=== PATIENT | female | born 1950 | race Caucasian/White ===

== ENCOUNTER 2016-11-17 18:49 | Observation (INO) | payer OTHER ==
--- NOTE | 2016-11-17 19:26 | RAD ---
History: Chest pain and shortness of breath Study: Portable AP chest Comparison: May 11, 2016 Findings: There is unchanged moderate cardiomegaly status post Coronary artery bypass grafting surge ry. There are unchanged intact pacemaker wire leads from the left subclavian vein. The lungs are anuj ssly clear. There is no pleural effusion. Impression: Chronic moderate cardiomegaly, no definite acute disease. Reported By:
--- NOTE | 2016-11-17 19:29 | DR.GENAD ---
HPI - PCP Primary Care Physician: matt - Complaint/Symptoms Chief Complaint Doctors Comments: I agree with statement. Patient reports that she was in usual state of health until last night when has had to increase her oxygen to 3L for comfort instead of the usual two. Shed admits to not being able across the room before getting short of breath; this is unusual for her. She has a two pilow orthopnea. Chief Complaint:: pt states" Adrianna been feeling sob and feeling weak for a few days my chest has been feeling heavy and my stomach hurts real bad" - Source History Provided: Patient - Mode of Arrival Mode of Arrival: Ambulatory - Timing Onset of Chief Complaint: 11/17/16 PMH - PMH Past Medical History: Yes Past Medical History: CHF, Diabetes Past Surgical History: Yes Surgical History: Angioplasty/Stents, CABG/Valve Surgery, Cholecystectomy Past Surgical History Comment: hernia - Family History History of Family Medical Conditions: Yes Family Medical History: [place], Coronary Artery Disease, Heart Failure, Hypertension - Social History Alcohol Use: None Lives With: Family Lives Where: Home - infectious screening In the last 2 months have you had wt loss of >10#?: NO Have you had fever, night sweats or hemotysis?: No Have you traveled outside the country in the last 6 months?: No Isolation: Standard ROS - Review of Systems Constitutional: Diaphoresis Eyes: No Symptoms Reported ENTM: No Symptoms Reported Respiratoy: Short of Breath Cardiovascular: No Symptoms Reported Gastrointestinal/Abdominal: No Symptoms Reported Genitourinary: No Symptoms Reported Neurological: No Symptoms Reported Musculoskeletal: No Symptoms Reported Integumentary: No Symptoms Reported Hematologic/Lymphatic: No Symptoms Reported Endocrine: No Symptoms Reported Psychiatric: No Symptoms Reported All Other Systems: Reviewed and Negative PE - Vital Signs Vitals: Temperature 97.5 F Pulse Rate 88 Respiratory Rate 20 Blood Pressure 96/64 O2 Sat by Pulse Oximetry 99 - General General Appearance: Alert, In No Apparent Distress - Head Head Exam: Normal Inspection, Atraumatic - Eyes Eye exam: Normal Appearance, PERRL, EOMI - ENT ENT Exam: Normal Exam External Ear Exam: Normal External Inspection TM/Canal Exam: Bilateral Normal Nose Exam: Normal Nose Exam Mouth Exam: Normal Inspection Throat Exam: Normal Inspection - Neck Neck Exam: Normal Inspection - Chest Chest Inspection: Normal Inspection - Respiratory Respiratory Exam: Normal Lung Sounds Bilat. negative: Respiratory Distress Respiratory Exam: Bilateral Clear to Auscultation - Cardiovascular Cardiovascular Exam: Regular Rate, Normal Rhythm - Abdominal Exam Abdominal Exam: Normal Inspection Abdominal Tenderness: negative: RUQ, RLQ, LUQ, LLQ, Epigastrium, Suprapubic, Diffuse, Mild, Moderate, Severe, Other - Extremities Extremities Exam: Other (RLE with 2+pitting) - Back Back Exam: Normal Inspection, Full ROM - Neurologic Neurological Exam: Alert, Oriented X3, CN II-XII Intact - Psychiatric Psychiatric Exam: Normal Affect, Normal Mood Course - Reevaluation 1st: Unchanged ROR - Labs Reviewed Laboratory Results Reviewed?: Yes (D Dimer 2920;BNAP 1320) Result Diagrams: 11/17/16 19:23 11/17/16 19:23 Laboratory: WBC 7.5 X10^3/uL (3.6-10.0) 11/17/16 19: RBC 3.97 X10^6/uL (3.5-5.4) 11/17/16 19: Hgb 9.7 g/dL (12.0-16.0) L 11/17/16 19:23 Hct 29.9 % (36.0-47.0) L 11/17/16 19:23 MCV 75.3 fL (80.0-100.0) L 11/17/16 19: MCH 24.4 pg (27.0-34.0) L 11/17/16 19:23 MCHC 32.4 g/dL (33.0-35.0) L 11/17/16 19:23 RDW 16.8 % (11.6-16.5) H 11/17/16 19:23 Plt Count 267 X10^3/uL (150.0-450.0) 11/17/16 19:23 Plt Count Comment Adequate (ADEQUATE) 11/17/16 19: MPV 8.3 fL (7.4-11.0) 11/17/16 19: Neut % 70.2 % (42.0-75.0) 11/17/16 19:23 Lymph % 19.3 % (21.0-51.0) L 11/17/16 19: Forrest % 8.3 % (0.0-13.0) 11/17/16 19: Eos % 1.3 % (0.9-2.9) 11/17/16 19:23 Baso % 0.9 % (0.2-1.0) 11/17/16 19:23 Neut # 5.3 x10^3/uL (2.2-4.8) H 11/17/16 19:23 Lymph # 1.5 X10^3/uL (1.3-2.9) 11/17/16 19: Forrest # 0.6 x10^3/uL (0.3-0.8) 11/17/16 19:23 Eos # 0.1 x10^3/uL (0.0-0.2) 11/17/16 19: Baso # 0.1 X10^3/uL (0.0-0.1) 11/17/16 19:23 Absolute Nucleated RBC 0.1 /100WBC 11/17/16 19:23 Plt Morphology Comment Normal (NORMAL) 11/17/16 19:23 RBC Morphology Abnormal (NORMAL) A 11/17/16 19:23 Hypochromasia 1+ A 11/17/16 19:23 Microcytosis 1+ A 11/17/16 19:23 INR Target Range - 11/17/16 19:23 INR 1.21 (0.8-1.3) 11/17/16 19:23 PTT 33.5 SECONDS (22.9-36.5) 11/17/16 19:23 PTT Comment - 11/17/16 19:23 D-Dimer 2920 ng/mL (0-400) H* 11/17/16 19:23 Sodium 136 mmol/L (136-145) 11/17/16 19:23 Corrected Sodium 138 mmol/L (136-145) 11/17/16 19:23 Potassium 4.3 mmol/L (3.5-5.1) 11/17/16 19:23 Chloride 99 mmol/L (98-107) 11/17/16 19:23 Carbon Dioxide 23.0 mmol/L (21-32) 11/17/16 19:23 BUN 37 mg/dL (7-18) H 11/17/16 19:23 Creatinine 1.55 mg/dL (0.55-1.02) H 11/17/16 19:23 Est GFR (MDRD) Af Amer 43 (>60) L 11/17/16 19:23 Est GFR (MDRD) Non-Af 35 (>60) L 11/17/16 19:23 Glucose 184 mg/dL (65-99) H 11/17/16 19:23 Calcium 8.5 mg/dL (8.5-10.1) 11/17/16 19:23 Corrected Calcium TNP 11/17/16 19:23 Magnesium 1.6 mg/dL (1.7-2.9) L 11/17/16 19:23 Total Bilirubin 0.70 mg/dL (0.2-1.0) 11/17/16 19:23 AST 110 Units/L (15-37) H 11/17/16 19:23 ALT 81 Units/L (12-78) H 11/17/16 19:23 Alkaline Phosphatase 88 Units/L (46-116) 11/17/16 19:23 Creatine Kinase 75 Units/L (26-192) 11/17/16 19:23 CK-MB (CK-2) 1.1 ng/mL (0-4.0) 11/17/16 19:23 CK/CKMB % Calc 1.5 % (<4) 11/17/16 19:23 Troponin I 0.04 ng/mL (0-1.5) 11/17/16 19:23 B-Natriuretic Peptide 1320 pg/mL (0-79) H* 11/17/16 19:23 Total Protein 7.4 g/dL (6.4-8.2) 11/17/16 19:23 Albumin 3.6 g/dL (3.4-5.0) 11/17/16 19:23 Globulin 3.8 g/dL (2.5-4.5) 11/17/16 19:23 Albumin/Globulin Ratio 0.9 Ratio (1.1-2.1) L 11/17/16 19:23 H. pylori IgG Antibody Negative (NEGATIVE) 11/17/16 19:23 - XRAY XRAY Interpreted by: Radiologist (Chest: There is unchanged moderate cardiomegaly status post coronary artery bypass grafting surgery. There are unchanged intact pacemaker wire leads from the left subclavian vein. The lungs are grossly clear.: Impression: Chronic moderate cardiomegalyh. no definite acute disease) - Diagnosis Discharge Problem: Congestive heart failure (CHF) Qualifiers: Congestive heart failure type: unspecified congestive heart failure type Congestive heart failure chronicity: acute Qualified Code(s): I50.9 - Heart failure, unspecified - Discharge Plan Condition: Stable - Follow ups/Referrals Follow ups/Referrals: NFD,None [Primary Care Provider] - 3 days - Instructions
[2016-11-17 19:34] LABS: BASOPHILS # (AUTO) 0.1 X10^3/uL (0.0-0.1); BASOPHILS % (AUTO) 0.9 % (0.2-1.0); EOSINOPHILS # (AUTO) 0.1 x10^3/uL (0.0-0.2); EOSINOPHILS % (AUTO) 1.3 % (0.9-2.9); HEMATOCRIT 29.9 % (36.0-47.0); HEMOGLOBIN 9.7 g/dL (12.0-16.0); LYMPHOCYTES # (AUTO) 1.5 X10^3/uL (1.3-2.9); LYMPHOCYTES % (AUTO) 19.3 % (21.0-51.0); MEAN CORPUSCULAR HEMOGLOBIN 24.4 pg (27.0-34.0); MEAN CORPUSCULAR HGB CONC 32.4 g/dL (33.0-35.0); MEAN CORPUSCULAR VOLUME 75.3 fL (80.0-100.0); MEAN PLATELET VOLUME 8.3 fL (7.4-11.0); MONOCYTES # (AUTO) 0.6 x10^3/uL (0.3-0.8); MONOCYTES % (AUTO) 8.3 % (0.0-13.0); NEUTROPHILS # (AUTO) 5.3 x10^3/uL (2.2-4.8); NEUTROPHILS % (AUTO) 70.2 % (42.0-75.0); PLATELET COUNT 267 X10^3/uL (150.0-450.0); RED BLOOD COUNT 3.97 X10^6/uL (3.5-5.4); RED CELL DISTRIBUTION WIDTH 16.8 % (11.6-16.5); WHITE BLOOD COUNT 7.5 X10^3/uL (3.6-10.0)
[2016-11-17 19:47] LABS: ALANINE AMINOTRANSFERASE 81 Units/L (12-78); ALBUMIN 3.6 g/dL (3.4-5.0); ALKALINE PHOSPHATASE 88 Units/L (46-116); ASPARTATE AMINO TRANSFERASE 110 Units/L (15-37); CALCIUM 8.5 mg/dL (8.5-10.1); CHLORIDE 99 mmol/L (98-107); COR NA(FOR HYPERGLY) 138 mmol/L (136-145); CREATININE 1.55 mg/dL (0.55-1.02); GLUCOSE 184 mg/dL (65-99); MAGNESIUM 1.6 mg/dL (1.7-2.9); SODIUM 136 mmol/L (136-145); TOTAL PROTEIN 7.4 g/dL (6.4-8.2); eGFR BLACK RACES 43 (>60); eGFR NON BLACK RACES 35 (>60)
[2016-11-17 19:59] LABS: HYPOCHROMASIA 1+; MICROCYTOSIS 1+; PLATELET MORPHOLOGY COMMENT NORMAL (NORMAL)
[2016-11-17 20:00] LABS: BLOOD UREA NITROGEN 37 mg/dL (7-18)
[2016-11-17 20:07] LABS: CKMB % 1.5 % (<4); CREATINE KINASE MB 1.1 ng/mL (0-4.0); TROPONIN I 0.04 ng/mL (0-1.5)
[2016-11-17 20:11] LABS: B-TYPE NATRIURETIC PEPTIDE 1320 pg/mL (0-79)
[2016-11-17] MEDS ORDERED: ZOFRAN INJ 4 MG VIAL IVP PRN (20:30)
[2016-11-17] MEDS ORDERED: MORPHINE SULFATE INJ 2 MG IVP PRN (20:31)
[2016-11-17] MEDS: LASIX IVP SCH (21:12)
[2016-11-17] MEDS: NS 1000 ML 1,000 ML IV SCH (21:12)
[2016-11-17] MEDS: HumuLIN R SUBCUT PRN (21:27)
[2016-11-17 21:33] VITALS: BMI 30.8
[2016-11-17 22:05] LABS: BILIRUBIN,URINE NEGATIVE (NEGATIVE); BLOOD/HEMOGLOBIN,URINE NEGATIVE (NEGATIVE); GLUCOSE, URINE NEGATIVE (NEGATIVE); KETONES,URINE NEGATIVE (NEGATIVE); LEUKOCYTE ESTERASE ,URINE 2+ (NEGATIVE); NITRITES,URINE NEGATIVE (NEGATIVE); PROTEIN,URINE 2+ (NEGATIVE); UROBILINOGEN,URINE NORMAL (NORMAL)
[2016-11-17 22:18] LABS: AMORPHOUS SEDIMENT,UR TRACE /HPF (NEGATIVE); APPEARANCE,URINE HAZY (CLEAR); BACTERIA,URINE 2+ /HPF (NEGATIVE); COLOR,URINE YELLOW (YELLOW); HYALINE CASTS, URINE FEW /LPF (NEGATIVE); RBC,URINE 0-2 /HPF (NEGATIVE); SQUAMOUS EPITHELIAL CELL,UR FEW /HPF (NEGATIVE)
[2016-11-18 01:38] LABS: CKMB % 1.6 % (<4); CREATINE KINASE 64 Units/L (26-192); CREATINE KINASE MB < 1.0 ng/mL (0-4.0); TROPONIN I 0.04 ng/mL (0-1.5)
[2016-11-18] MEDS ORDERED: TYLENOL 325 MG TAB PO PRN (03:51)
[2016-11-18] MEDS: LASIX IVP SCH ×2 (06:01→17:19)
--- NOTE | 2016-11-18 06:27 | RAD ---
HISTORY: Shortness of breath Study: Chest one view Comparison: November 17, 2016 Findings: There is a pacemaker present on the left obscuring a portion of the left lateral upper lobe. The pat ient is status post median sternotomy. The heart is enlarged. Mild pulmonary venous congestion is pr esent. No interstitial or alveolar edema, alveolar infiltrates, or pleural effusions are identified. The bony thorax is unremarkable. IMPRESSION: Cardiomegaly with pulmonary venous congestion Reported By:
[2016-11-18 06:32] LABS: BASOPHILS # (AUTO) 0.1 X10^3/uL (0.0-0.1); BASOPHILS % (AUTO) 1.3 % (0.2-1.0); EOSINOPHILS # (AUTO) 0.1 x10^3/uL (0.0-0.2); EOSINOPHILS % (AUTO) 2.2 % (0.9-2.9); HEMATOCRIT 29.8 % (36.0-47.0); HEMOGLOBIN 9.6 g/dL (12.0-16.0); LYMPHOCYTES # (AUTO) 1.3 X10^3/uL (1.3-2.9); LYMPHOCYTES % (AUTO) 20.9 % (21.0-51.0); MEAN CORPUSCULAR HGB CONC 32.3 g/dL (33.0-35.0); MEAN CORPUSCULAR VOLUME 74.3 fL (80.0-100.0); MEAN PLATELET VOLUME 8.6 fL (7.4-11.0); MONOCYTES # (AUTO) 0.4 x10^3/uL (0.3-0.8); MONOCYTES % (AUTO) 6.2 % (0.0-13.0); NEUTROPHILS # (AUTO) 4.4 x10^3/uL (2.2-4.8); NEUTROPHILS % (AUTO) 69.4 % (42.0-75.0); PLATELET COUNT 253 X10^3/uL (150.0-450.0); RED BLOOD COUNT 4.01 X10^6/uL (3.5-5.4); RED CELL DISTRIBUTION WIDTH 16.9 % (11.6-16.5); WHITE BLOOD COUNT 6.4 X10^3/uL (3.6-10.0)
[2016-11-18 06:41] LABS: ALANINE AMINOTRANSFERASE 107 Units/L (12-78); ALBUMIN 3.5 g/dL (3.4-5.0); ALKALINE PHOSPHATASE 86 Units/L (46-116); ASPARTATE AMINO TRANSFERASE 140 Units/L (15-37); BLOOD UREA NITROGEN 30 mg/dL (7-18); CALCIUM 8.7 mg/dL (8.5-10.1); CARBON DIOXIDE 29.3 mmol/L (21-32); CHLORIDE 98 mmol/L (98-107); CHOL/HDL RATIO 4.5 (0.0-5.0); CHOLESTEROL 127 mg/dL (0-200); COR NA(FOR HYPERGLY) 137 mmol/L (136-145); CREATININE 1.04 mg/dL (0.55-1.02); GLUCOSE 155 mg/dL (65-99); HDL CHOLESTEROL 28 mg/dL (40-60); SODIUM 136 mmol/L (136-145); TOTAL PROTEIN 7.4 g/dL (6.4-8.2); TRIGLYCERIDES 136 mg/dL (0-150); eGFR BLACK RACES > 60 (>60); eGFR NON BLACK RACES 56 (>60)
[2016-11-18] MEDS ORDERED: K-LYTE EFFERVESCENT PO PRN (07:09)
[2016-11-18] MEDS ORDERED: K-RIDER 10 MEQ/NS 100 ML 10 MEQ/100 ML BAG IV PRN (07:09)
[2016-11-18] MEDS ORDERED: POTASSIUM CHLORIDE LIQ 20 MEQ UDC PO PRN (07:09)
[2016-11-18 07:11] LABS: B-TYPE NATRIURETIC PEPTIDE 1210 pg/mL (0-79)
[2016-11-18 07:28] LABS: HYPOCHROMASIA 1+; MICROCYTOSIS SLIGHT; PLATELET MORPHOLOGY COMMENT NORMAL (NORMAL)
[2016-11-18 07:49] LABS: CKMB % 1.7 % (<4); CREATINE KINASE 60 Units/L (26-192); CREATINE KINASE MB < 1.0 ng/mL (0-4.0); TROPONIN I 0.04 ng/mL (0-1.5)
[2016-11-18] MEDS: K-DUR TAB 20 MEQ PO PRN (09:31)
[2016-11-18] MEDS ORDERED: PROCRIT or EPOGEN SC ONE ×2 (10:34→16:06)
[2016-11-18] MEDS ORDERED: GLIPIZIDE 20 MG PO SCH (10:45)
[2016-11-18] MEDS ORDERED: VITAMIN E 400 UNIT PO SCH (10:45)
[2016-11-18] MEDS ORDERED: PREGABALIN 75 MG PO SCH (10:45)
[2016-11-18] MEDS ORDERED: ESOMEPRAZOLE MAGNESIUM 10 MG PO SCH (10:45)
[2016-11-18] MEDS ORDERED: METFORMIN HCL 2000 MG PO SCH (10:45)
--- NOTE | 2016-11-18 10:55 | DR.H&P ---
H&P - History & Physical for Day of: H&P Date: 11/17/16 - Chief Complaint Chief Complaint: SHORT OF BREATH, WEAKNESS, HEAVINESS IN CHEST, ABDOMINAL PAIN - Allergies Allergies/Adverse Reactions: Allergies Allergy/AdvReac Type Severity Reaction Status Date / Time No Known Allergies AdvReac Verified 11/17/16 18:52 - History of Present Illness History of Present Illness: IS A 66 YEAR OLD PATIENT OF OURS WHO PRESENTED TO THE ER WITH COMPLAINTS OF SHORTNESS OF BREATH, WEAKNESS, FEELINGS OF HEAVINESS IN CHEST, AND ABDOMINAL PAIN AND PAINFUL URINATION. PATIENT STATES THAT SHE BECAME SHORT OF BREATH AND HAD TO INCREASE HER OXYGEN TO 3 LPM, WHEREAS SHE USUALLY WEARS IT AT 2 LPM. LUNGS WERE NOTED WITH RALES BILATERALLY. ON ARRIVAL TO ER, VITALS WERE 97.0-84-36-99-96/64. CBC REPORTS WBC 7.5, RBC 3.97, HGB 9.7, HCT 29.9. CMP REPORTS SODIUM 136, POTASSIM 4.3, BUN 37, CREATININE 1.5, GLUCOSE 184, MAGNESIUM 1.6, AST 110, ALT 81, BNP 1320. D-DIMER 2920. H-PYLORI NEGATIVE. URINALYSIS REPORTS WBC 10-12, LEUKOCYTES 2+, BACTERIA 2 +, PROTEIN 2+. CHEST XRAY REPORTS CHROMIC MODERATE CARDIOMEGALY, NO DEFINITE ACUTE DISEASE. WE ADMITTED PATIENT FOR FURTHER TREATMENT AND EVALUATION. WE STARTED HER ON NS @80 ML/HR, LASIX 40MG IV BID, SLIDING SCALE INSULIN, ZOFRAN 4 MG IV Q4H PRN FOR NAUSEA, AND MORPHINE 2MG IVP Q4H PRN PAIN. WE PLANNED TO RECHECK LABS AND FOLLOW UP WITH PATIENT IN AM. - Past Medical History Past Medical History: Anemia, CHF, Depression, Diabetes, Dyslipidemia, GERD, PUD Additional Medical History: CATARACTS, RETINAL DETACHMENT, HIATAL HERNIA - Past Surgical History Surgical History: Cholecystectomy, Hysterectomy, Tonsillectomy Additional Surgical History: BYPASS X 4 - Family History Family Medical History: Diabetes Mellitus, [place], Hypertension - Social History Does patient currently use any type of tobacco product: No Have you used tobacco products in the last 12 months: No Type of Tobacco Use: None Does any household member use tobacco: No Alcohol Use: None Drug Use: None - Medications Home Medications: Clopidogrel Bisulfate [Clopidogrel] 75 mg PO DAILY 11/17/16 [History Confirmed 11/17/16] Esomeprazole Magnesium 10 mg PO DAILY 11/17/16 [History Confirmed 11/17/16] Furosemide [Furosemide] 40 mg PO DAILY 11/17/16 [History Confirmed 11/17/16] Glipizide [Glipizide] 20 mg PO DAILY 11/17/16 [History Confirmed 11/17/16] Lansoprazole [Prevacid] 30 mg PO DAILY 11/17/16 [History Confirmed 11/17/16] Metformin HCl [Metformin HCl ER] 2,000 mg PO DAILY 11/17/16 [History Confirmed 11/17/16] Metoprolol Succinate [Toprol Xl] 1 tab PO DAILY 11/17/16 [History Confirmed ] Niacin [Niacin ER 1000 mg] 2,000 mg PO HS 11/17/16 [History Confirmed 11/17/16] Potassium Citrate [Potassium Citrate] 1 tab PO DAILY 11/17/16 [History Confirmed 11/17/16] Pregabalin 75 mg PO NEEDED 11/17/16 [History Confirmed 11/17/16] Ranitidine HCl [Zantac] 300 mg PO HS PRN 11/17/16 [History Confirmed 11/17/16] Rosuvastatin Calcium [Crestor] 40 mg PO HS 11/17/16 [History Confirmed 11/17/16] Vitamin E 400 unit PO DAILY 11/17/16 [History Confirmed 11/17/16] Zolpidem Tartrate [Zolpidem Tartrate] 10 mg PO DAILY 11/17/16 [History Confirmed 11/17/16] - Review of Systems Constitutional: No Symptoms Reported. denies: See HPI, Fever, Chills, Sweats, Weakness, Malaise, Other Eyes: No Symptoms Reported. denies: See HPI, Pain, Vision Change, Conjunctivae Inflammation, Eyelid Inflammation, Redness, Other ENT: No Symptoms Reported. denies: See HPI, Ear Pain, Ear Discharge, Nose Pain , Nose Discharge, Nose Congestion, Mouth Pain, Mouth Swelling, Throat Pain, Throat Swelling, Other Respiratory: See HPI, Shortness of Breath, SOB with Excertion. denies: No Symptoms Reported, Cough, Dry, Hemoptysis, Pleuritic Pain, Sputum, Wheezing, Other Cardiovascular: Chest Pain. denies: No Symptoms Reported, See HPI, Palpitations , Orthopnea, Paroxysmal Noc. Dyspnea, Edema, Light Headedness, Other Gastrointestinal: Abdominal Pain. denies: No Symptoms Reported, See HPI, Nausea , Vomiting, Diarrhea, Constipation, Melena, Hematochezia, Other Genitourinary: Dysuria. denies: No Symptoms Reported, See HPI, Frequency, Incontinence, Hematuria, Retention, Other Musculoskeletal: No Symptoms Reported. denies: See HPI, Shoulder Pain, Arm Pain , Back Pain, Hand Pain, Leg Pain, Foot Pain, Neck Pain, Other Skin: No Symptoms Reported. denies: See HPI, Rash, Lesions, Jaundice, Bruising , Wound, Ecchymosis, Other Neurological: Weakness. denies: No Symptoms Reported, See HPI, Numbness, Incoordination, Change in Speech, Confusion, Seizures, Other - Physical Exam Vital Signs: Temperature 97.9 F Pulse Rate [Apical] 83 Respiratory Rate 20 Blood Pressure [Right Arm] 108/59 O2 Sat by Pulse Oximetry 100 Oriented: Normal. negative: Time, Person, Place, Not Oriented, Unable to test, Other Eyes: Normal. negative: Blurred Vision, Diplopia, Discharge, Pain, Redness, Photophobia, Other Ear: Normal. negative: Right, Left, Swelling, Ecchymosis, Hemotypanum, Abrasion , Laceration Nose: Normal Throat: Normal. negative: Tonsillar Hypertrophy, Red, Exudate, Dry, Other Respiratory: Rales Throughout. negative: Clear Throughout, Diminished Throughout, Rhonchi Throughout, Wheezes Throughout, RUL Clear, RML Clear, RLL Clear, JUAN Clear, LML Clear, LLL Clear, RUL Diminished, RML Diminished, RLL Diminished, JUAN Diminished, LML Diminished, LLL Diminished, RUL Absent, RML Absent, RLL Absent, JUAN Absent, LML Absent, LLL Absent, RUL Rhonchi, RML Rhonchi , RLL Rhonchi, JUAN Rhonchi, LML Rhonchi, LLL Rhonchi, RUL Insp. Wheeze, RML Insp. Wheeze, RLL Insp. Wheeze, JUAN Insp.Wheeze, LML Insp.Wheeze, LLL Insp.Wheeze, RUL Exp. Wheeze, RML Exp. Wheeze, RLL Exp. Wheeze, JUAN Exp. Wheeze , LML Exp. Wheeze, LLL Exp. Wheeze, RUL Rales, RML Rales, RLL Rales, JUAN Rales, LML Rales, LLL Rales, RUL Rub, RML Rub, RLL Rub, JUAN Rub, LML Rub, LLL Rub, RUL Squeak, RML Squeak, RLL Squeak, JUAN Squeak, LML Squeak, LLL Squeak Cardiovascular: Normal. negative: Tachycardia, Bradycardia, Irregular, S3, S4, Systolic, Diastolic, Murmur, Edema, Other : Normal. negative: Dysuria, Hematuria, Frequency, Discharge, Testicular Pain , Bleeding, , Other Auscultation: Bowel Sounds: Normal. negative: Bruit, Absent, Increased, Decreased, High Pitched, Other Palpation: Normal. negative: Spleen Enlarged, Liver Enlarged, Mass Pulsatile, Other Tenderness: Normal. negative: Diffuse, RUQ, RLQ, LUQ, LLQ, Epigastric, Periumbilical, Suprapubic, Mild, Moderate, Severe, Rebound, Guarding, Rigidity, Other Skin: Normal. negative: Decreased Turgur, Rash, Papular, Macular, Maculopapular , Vesicular, Pustular, Petechial, Red, Tender, Hot, Diaphoresis, Wound, Bruising , Ecchymosis, Other Musculoskeletal: Normal. negative: Right, Left, Shoulder, Clavicle, Arm, Elbow , Forearm, Wrist, Hand, Hip, Thigh, Knee, Leg, Ankle, Foot, Back:Thoracic, Back: Lumbar, Back:Midline, Back:Paraspinous, Pelvis, Swelling, Tender, Deformity, Pulse Deficit, Motor Deficit, Sensory Deficit, Instability, Crepitance Psychiatric: Normal. negative: Anxiety, Depression, Agitation, Other Mood Description: Calm. negative: Angry, Apathetic, Depressed, Fearful, Flat, Happy, Hostile, Sad, Suspicious, Withdrawn, Anxious, Appropriate, Labile Affect: Normal. negative: Angry, Anxious, Depressed, Flat, Hysterical, Quiet, Violent Speech Pattern: Clear. negative: Appropriate, Unclear, Inappropriate, Delayed, Slurred, Excessive, Aphasic, Artificially Ventilated - Assessment/Plan (1) Congestive heart failure (CHF) Qualifiers: Congestive heart failure type: unspecified congestive heart failure type Congestive heart failure chronicity: acute Qualified Code(s): I50.9 - Heart failure, unspecified Status: Acute Plan: START LASIX 40MG IV BID, CHECK CHEST XRAY, CONTINUE TO MONITOR (2) Dehydration Status: Acute Plan: START NS @ 80ML/HR. CONTINUE TO MONITOR (3) Urinary tract infection Qualifiers: Urinary tract infection type: site unspecified Hematuria presence: without hematuria Indwelling urinary catheter type: I Encounter type: E Qualified Code(s): N39.0 - Urinary tract infection, site not specified Status: Acute Plan: START ROCEPHIN 1GM IV DAILY, CONTINUE TO MONITOR
[2016-11-18] MEDS ORDERED: MAGNESIUM SULFATE 1 GM/100 mL PREMIX 1 GM/100 ML BAG IV ONE (11:03)
[2016-11-18] MEDS ORDERED: PROCRIT or EPOGEN ONE (13:22)
[2016-11-18] MEDS: PLAVIX PO SCH (13:30)
[2016-11-18] MEDS: PREVACID PO SCH (13:30)
[2016-11-18] MEDS: HumuLIN R SUBCUT PRN ×3 (13:31→21:01)
[2016-11-18] MEDS: ROCEPHIN VIAL 1 GM 1 GM in NS 50 ML IV + SPIKE MINIBAG* 50 ML IV SCH (13:34)
--- NOTE | 2016-11-18 13:35 | PCM.PROG ---
Progress Note - Progress Note for Day of Date: 11/18/16 - Subjective Subjective: WAS ADMITTED LAST NIGHT WITH CHF, DEHYDRATION, AND UTI. SHE IS ALERT AND ORIENTED, UP IN CHAIR, ON MORNING ROUNDS. PATIENT'S SISTER IS AT BEDSIDE. SHE CONTINUES WITH COMPLAINTS OF SUPRAPUBIC ABDOMINAL PAIN AND SHORTNESS OF BREATH. LUNGS ARE NOTED WITH RALES BILATERALLY. BOWEL SOUNDS NORMAL IN ALL QUADRANTS. VIALS THIS AM WERE 97.8-87-16-100%-104/58. CBC WNL EXCEPT HGB 9.6, HCT 29.8. CMP WNL EXCEPT POTASSIUM 3.3, GLUCOSE 155, BUN 30, CREATININE 1.04, AST 140, ALT 107. CHEST XRAY REPORTS CARDIOMEGALY WITH PULMONARY VENOUS CONGESTION. WE WILL START PROCRIT 5,000 UNITS SC TEST DOSE. IF SHE TOLERATES WELL, WE WILL GIVE ANOTHER DOSE THIS AFTERNOON, THEN 10,000 UNITS ON WED, WED, AND FRIDAYS. WE WILL START ROCEPHIN 1 GM DAILY FOR UTI, REVIEW HOME MEDICATIONS, AND OBTAIN ECHO REPORT FROM OUR OFFICE. WE WILL RECHECK CBC, CMP, AND CHEST XRAY AND FOLLOW UP WITH PATIENT IN AM. - Past Medical Family Social History Past Med/Fam/Surg Hx: No changes since H&P Allergies: Allergies No Known Allergies Adverse Reaction (Verified 11/17/16 18:52) - Review of Systems ROS: No change since H&P - Vital Signs and I&O's Vital Signs: Temperature 97.6 F Pulse Rate [Apical] 87 Respiratory Rate 22 Blood Pressure [Right Arm] 97/63 O2 Sat by Pulse Oximetry 100 Intake and Output: Intake & Output 11/16/16 11/17/16 11/18/16 11/19/16 11:59 11:59 11:59 11:59 Intake Total 197 Balance 197 - Physical Exam Oriented: Normal. negative: Time, Person, Place, Not Oriented, Unable to test, Other Eyes: Normal. negative: Blurred Vision, Diplopia, Discharge, Pain, Redness, Photophobia, Other Ear: Normal. negative: Right, Left, Swelling, Ecchymosis, Hemotypanum, Abrasion , Laceration Nose: Normal Throat: Normal. negative: Tonsillar Hypertrophy, Red, Exudate, Dry, Other Respiratory: Right, Left, Rales Cardiovascular: Normal. negative: Tachycardia, Bradycardia, Irregular, S3, S4, Systolic, Diastolic, Murmur, Edema, Other : Normal. negative: Dysuria, Hematuria, Frequency, Discharge, Testicular Pain , Bleeding, , Other Auscultation: Bowel Sounds: Normal. negative: Bruit, Absent, Increased, Decreased, High Pitched, Other Palpation: Normal Tenderness: Normal. negative: Diffuse, RUQ, RLQ, LUQ, LLQ, Epigastric, Periumbilical, Suprapubic, Mild, Moderate, Severe, Rebound, Guarding, Rigidity, Other Skin: Normal. negative: Decreased Turgur, Rash, Papular, Macular, Maculopapular , Vesicular, Pustular, Petechial, Red, Tender, Hot, Diaphoresis, Wound, Bruising , Ecchymosis, Other Musculoskeletal: Normal. negative: Right, Left, Shoulder, Clavicle, Arm, Elbow , Forearm, Wrist, Hand, Hip, Thigh, Knee, Leg, Ankle, Foot, Back:Thoracic, Back: Lumbar, Back:Midline, Back:Paraspinous, Pelvis, Swelling, Tender, Deformity, Pulse Deficit, Motor Deficit, Sensory Deficit, Instability, Crepitance Psychiatric: Normal. negative: Anxiety, Depression, Agitation, Other Mood Description: Calm. negative: Angry, Apathetic, Depressed, Fearful, Flat, Happy, Hostile, Sad, Suspicious, Withdrawn, Anxious, Appropriate, Labile Affect: Normal. negative: Angry, Anxious, Depressed, Flat, Hysterical, Quiet, Violent Speech Pattern: Clear. negative: Appropriate, Unclear, Inappropriate, Delayed, Slurred, Excessive, Aphasic, Artificially Ventilated - Laboratory and Diagnostics Result Diagrams: 11/18/16 05:10 11/18/16 05:10 Labs: 11/17/16 21:45 Urine,Clean Catch Urine Culture - Preliminary Laboratory WBC 6.4 X10^3/uL (3.6-10.0) 11/18/16 05:10 RBC 4.01 X10^6/uL (3.5-5.4) 11/18/16 05:10 Hgb 9.6 g/dL (12.0-16.0) L 11/18/16 05:10 Hct 29.8 % (36.0-47.0) L 11/18/16 05:10 MCV 74.3 fL (80.0-100.0) L 11/18/16 05:10 MCH 24.0 pg (27.0-34.0) L 11/18/16 05:10 MCHC 32.3 g/dL (33.0-35.0) L 11/18/16 05:10 RDW 16.9 % (11.6-16.5) H 11/18/16 05:10 Plt Count 253 X10^3/uL (150.0-450.0) 11/18/16 05:10 Plt Count Comment Adequate (ADEQUATE) 11/18/16 05:10 MPV 8.6 fL (7.4-11.0) 11/18/16 05:10 Neut % 69.4 % (42.0-75.0) 11/18/16 05:10 Lymph % 20.9 % (21.0-51.0) L 11/18/16 05:10 [place] % 6.2 % (0.0-13.0) 11/18/16 05:10 Eos % 2.2 % (0.9-2.9) 11/18/16 05:10 Baso % 1.3 % (0.2-1.0) H 11/18/16 05:10 Neut # 4.4 x10^3/uL (2.2-4.8) 11/18/16 05:10 Lymph # 1.3 X10^3/uL (1.3-2.9) 11/18/16 05:10 [place] # 0.4 x10^3/uL (0.3-0.8) 11/18/16 05:10 Eos # 0.1 x10^3/uL (0.0-0.2) 11/18/16 05:10 Baso # 0.1 X10^3/uL (0.0-0.1) 11/18/16 05:10 Absolute Nucleated RBC 0.1 /100WBC 11/18/16 05:10 Plt Morphology Comment Normal (NORMAL) 11/18/16 05:10 RBC Morphology Abnormal (NORMAL) A 11/18/16 05:10 Hypochromasia 1+ A 11/18/16 05:10 Microcytosis Slight A 11/18/16 05:10 INR Target Range - 11/17/16 19:23 INR 1.21 (0.8-1.3) 11/17/16 19:23 PTT 33.5 SECONDS (22.9-36.5) 11/17/16 19:23 PTT Comment - 11/17/16 19:23 D-Dimer 2920 ng/mL (0-400) H* 11/17/16 19:23 Sodium 136 mmol/L (136-145) 11/18/16 05:10 Corrected Sodium 137 mmol/L (136-145) 11/18/16 05:10 Potassium 3.3 mmol/L (3.5-5.1) L 11/18/16 05:10 Chloride 98 mmol/L (98-107) 11/18/16 05:10 Carbon Dioxide 29.3 mmol/L (21-32) 11/18/16 05:10 BUN 30 mg/dL (7-18) H 11/18/16 05:10 Creatinine 1.04 mg/dL (0.55-1.02) H 11/18/16 05:10 Est GFR (MDRD) Af Amer > 60 (>60) 11/18/16 05:10 Est GFR (MDRD) Non-Af 56 (>60) L 11/18/16 05:10 Glucose 155 mg/dL (65-99) H 11/18/16 05:10 Calcium 8.7 mg/dL (8.5-10.1) 11/18/16 05:10 Corrected Calcium TNP 11/18/16 05:10 Magnesium 1.6 mg/dL (1.7-2.9) L 11/17/16 19:23 Total Bilirubin 0.70 mg/dL (0.2-1.0) 11/18/16 05:10 AST 140 Units/L (15-37) H 11/18/16 05:10 ALT 107 Units/L (12-78) H 11/18/16 05:10 Alkaline Phosphatase 86 Units/L (46-116) 11/18/16 05:10 Creatine Kinase 60 Units/L (26-192) 11/18/16 07:10 CK-MB (CK-2) < 1.0 ng/mL (0-4.0) 11/18/16 07:10 CK/CKMB % Calc 1.7 % (<4) 11/18/16 07:10 Troponin I 0.04 ng/mL (0-1.5) 11/18/16 07:10 B-Natriuretic Peptide 1210 pg/mL (0-79) H* 11/18/16 05:10 Total Protein 7.4 g/dL (6.4-8.2) 11/18/16 05:10 Albumin 3.5 g/dL (3.4-5.0) 11/18/16 05:10 Globulin 3.9 g/dL (2.5-4.5) 11/18/16 05:10 Albumin/Globulin Ratio 0.9 Ratio (1.1-2.1) L 11/18/16 05:10 Triglycerides 136 mg/dL (0-150) 11/18/16 05:10 Cholesterol 127 mg/dL (0-200) 11/18/16 05:10 LDL Cholesterol, Calc 72 mg/dL (0-100) 11/18/16 05:10 HDL Cholesterol 28 mg/dL (40-60) L 11/18/16 05:10 Cholesterol/HDL Ratio 4.5 (0.0-5.0) 11/18/16 05:10 Specimen Type Clean catch urine 11/17/16 21:45 Urine Color Yellow (YELLOW) 11/17/16 21:45 Urine Appearance Hazy (CLEAR) 11/17/16 21:45 Urine pH 5.0 (5.0 - 8.0) 11/17/16 21:45 Ur Specific [place] 1.020 (1.000-1.030) 11/17/16 21:45 Urine Protein 2+ (NEGATIVE) 11/17/16 21:45 Urine Glucose (UA) Negative (NEGATIVE) 11/17/16 21:45 Urine Ketones Negative (NEGATIVE) 11/17/16 21:45 Urine Occult Blood Negative (NEGATIVE) 11/17/16 21:45 Urine Nitrite Negative (NEGATIVE) 11/17/16 21:45 Urine Bilirubin Negative (NEGATIVE) 11/17/16 21:45 Urine Urobilinogen Normal (NORMAL) 11/17/16 21:45 Ur Leukocyte Esterase 2+ (NEGATIVE) 11/17/16 21:45 Urine RBC 0-2 /HPF (NEGATIVE) 11/17/16 21:45 Urine WBC 10-12 /HPF (NEGATIVE) 11/17/16 21:45 Ur Squamous Epith Cells Few /HPF (NEGATIVE) 11/17/16 21:45 Amorphous Sediment Trace /HPF (NEGATIVE) 11/17/16 21:45 Urine Bacteria 2+ /HPF (NEGATIVE) 11/17/16 21:45 Hyaline Casts Few /LPF (NEGATIVE) 11/17/16 21:45 Ur Culture Indicated? Yes/culture set up 11/17/16 21:45 H. pylori IgG Antibody Negative (NEGATIVE) 11/17/16 19:23 - Plan (1) Congestive heart failure (CHF) Status: Acute Qualifiers: Congestive heart failure type: unspecified congestive heart failure type Congestive heart failure chronicity: acute Qualified Code(s): I50.9 - Heart failure, unspecified Plan: CONTINUE LASIX 40MG IV BID, CHECK CHEST XRAY, CONTINUE TO MONITOR (2) Dehydration Status: Acute Plan: CONTINUE NS @ 80ML/HR. CONTINUE TO MONITOR (3) Urinary tract infection Status: Acute Qualifiers: Urinary tract infection type: site unspecified Hematuria presence: without hematuria Indwelling urinary catheter type: I Encounter type: E Qualified Code(s): N39.0 - Urinary tract infection, site not specified Plan: START ROCEPHIN 1GM IV DAILY, CONTINUE TO MONITOR (4) Diabetes Status: Chronic Qualifiers: Diabetes mellitus type: type 2 Diabetes mellitus complication status: with unspecified complications Diabetes mellitus complication detail: D Diabetic retinopathy severity: D Proliferative retinopathy type: P Diabetes mellitus macular edema: D Diabetes mellitus residential insulin use: unspecified residential insulin use status Laterality: L Chronic kidney disease stage: C Qualified Code(s): E11.8 - Type 2 diabetes mellitus with unspecified complications Plan: SLIDING SCALE REGULAR INSULIN, CONTINUE HOME MEDS GLIPIZIDE AND METFORMIN , CHECK OTBS, CONTINUE TO MONITOR (5) GERD (gastroesophageal reflux disease) Status: Acute Qualifiers: Esophagitis presence: esophagitis presence not specified Qualified Code(s) : K21.9 - Gastro-esophageal reflux disease without esophagitis Plan: CONTINUE ZANTAC, CONTINUE PREVACID, CONTINUE NEXIUM, CONTINUE TO MONITOR (6) Insomnia Status: Acute Qualifiers: Insomnia type: primary Qualified Code(s): F51.01 - Primary insomnia Plan: CONTINUE AMBIEN, CONTINUE TO MONITOR (7) Hyperlipidemia Status: Acute Qualifiers: Hyperlipidemia type: mixed hyperlipidemia Qualified Code(s): E78.2 - Mixed hyperlipidemia Plan: CONTINUE CRESTOR, CONTINUE NIACIN, CONTINUE TO MONITOR
[2016-11-18] MEDS ORDERED: SNACK - Diabetic Appropriate PO SCH (20:00)
[2016-11-18] MEDS: NS 1000 ML 1,000 ML IV SCH ×2 (20:37→22:42)
[2016-11-18] MEDS ORDERED: CRESTOR TAB 10 MG PO SCH (21:00)
[2016-11-18] MEDS ORDERED: NIASPAN ER TAB 500 MG PO SCH (21:00)
[2016-11-18] MEDS ORDERED: NIACIN 2000 MG PO SCH (21:00)
[2016-11-18] MEDS ORDERED: AMBIEN PO SCH (21:00)
[2016-11-18] MEDS ORDERED: ZANTAC PO SCH (21:00)
[2016-11-18] MEDS ORDERED: PATIENT'S HOME MEDICATION (Ranitidine Hcl [Zantac] 300 MG) PO SCH (21:00)
[2016-11-18] MEDS ORDERED: PATIENT'S HOME MEDICATION (Rosuvastatin Calcium [Crestor] 40 MG) PO SCH (21:00)
[2016-11-19 06:11] LABS: BASOPHILS # (AUTO) 0.1 X10^3/uL (0.0-0.1); BASOPHILS % (AUTO) 1.2 % (0.2-1.0); EOSINOPHILS # (AUTO) 0.2 x10^3/uL (0.0-0.2); EOSINOPHILS % (AUTO) 2.5 % (0.9-2.9); HEMATOCRIT 31.5 % (36.0-47.0); HEMOGLOBIN 10.4 g/dL (12.0-16.0); LYMPHOCYTES # (AUTO) 1.2 X10^3/uL (1.3-2.9); LYMPHOCYTES % (AUTO) 18.9 % (21.0-51.0); MEAN CORPUSCULAR HEMOGLOBIN 24.5 pg (27.0-34.0); MEAN CORPUSCULAR VOLUME 74.1 fL (80.0-100.0); MEAN PLATELET VOLUME 8.6 fL (7.4-11.0); MONOCYTES # (AUTO) 0.6 x10^3/uL (0.3-0.8); MONOCYTES % (AUTO) 9.2 % (0.0-13.0); NEUTROPHILS # (AUTO) 4.4 x10^3/uL (2.2-4.8); NEUTROPHILS % (AUTO) 68.2 % (42.0-75.0); PLATELET COUNT 279 X10^3/uL (150.0-450.0); RED BLOOD COUNT 4.25 X10^6/uL (3.5-5.4); RED CELL DISTRIBUTION WIDTH 16.8 % (11.6-16.5); WHITE BLOOD COUNT 6.5 X10^3/uL (3.6-10.0)
[2016-11-19 06:24] LABS: ALANINE AMINOTRANSFERASE 107 Units/L (12-78); ALBUMIN 3.6 g/dL (3.4-5.0); ALKALINE PHOSPHATASE 88 Units/L (46-116); ASPARTATE AMINO TRANSFERASE 96 Units/L (15-37); BLOOD UREA NITROGEN 22 mg/dL (7-18); CALCIUM 8.9 mg/dL (8.5-10.1); CARBON DIOXIDE 33.6 mmol/L (21-32); CHLORIDE 96 mmol/L (98-107); COR NA(FOR HYPERGLY) 140 mmol/L (136-145); CREATININE 0.97 mg/dL (0.55-1.02); GLUCOSE 279 mg/dL (65-99); SODIUM 136 mmol/L (136-145); TOTAL PROTEIN 7.9 g/dL (6.4-8.2); eGFR BLACK RACES > 60 (>60); eGFR NON BLACK RACES > 60 (>60)
[2016-11-19 06:48] LABS: HYPOCHROMASIA SLIGHT; MICROCYTOSIS SLIGHT; PLATELET MORPHOLOGY COMMENT NORMAL (NORMAL)
[2016-11-19] MEDS: K-DUR TAB 20 MEQ PO PRN ×2 (06:52→09:57)
[2016-11-19] MEDS: HumuLIN R SUBCUT PRN (06:53)
[2016-11-19] MEDS: LASIX IVP SCH (06:54)
[2016-11-19] MEDS ORDERED: GLUCOTROL PO SCH (07:00)
[2016-11-19 08:08] VITALS: BP 106/68
[2016-11-19] MEDS: PREVACID PO SCH (08:14)
[2016-11-19] MEDS: ROCEPHIN VIAL 1 GM 1 GM in NS 50 ML IV + SPIKE MINIBAG* 50 ML IV SCH (08:15)
[2016-11-19] MEDS: PLAVIX PO SCH (08:15)
--- NOTE | 2016-11-19 08:43 | RAD ---
HISTORY: Shortness of breath Study: Portable chest Comparison: Yesterday Findings: The trachea is midline. The cardiac silhouette is mild to moderately enlarged as before status post coronary artery bypass grafting surgery. There are intact pacemaker wire leads.. There is slight i mprovement in vascular congestion. There is no effusion.. The bony thorax is unremarkable. IMPRESSION: 1. Persistent cardiomegaly and improving vascular congestion Reported By:
[2016-11-19] MEDS ORDERED: LYRICA CAP 75 MG PO SCH (09:00)
[2016-11-19] MEDS ORDERED: GLUCOPHAGE XR PO SCH (09:00)
--- NOTE | 2016-11-19 11:38 | DR.CARTERD ---
- Discharge Summary for: Discharge Summary for Date of:: 11/19/16 - Admission Date Date of Admission: 11/17/16 - Admission Diagnoses Admission Diagnosis: (1) Congestive heart failure (CHF) (2) Dehydration (3) Urinary tract infection - Discharge Date Discharge Date: 11/19/16 - Discharge Diagnoses Discharge Diagnosis: (1) Congestive heart failure (CHF) (2) Dehydration (3) Urinary tract infection (4) Diabetes (5) GERD (gastroesophageal reflux disease) (6) Insomnia (7) Hyperlipidemia - Hospital Course Hospital Course: IS A 66 YEAR OLD PATIENT OF OURS WHO PRESENTED TO THE ER WITH COMPLAINTS OF SHORTNESS OF BREATH, WEAKNESS, FEELINGS OF HEAVINESS IN CHEST, AND ABDOMINAL PAIN AND PAINFUL URINATION. PATIENT STATES THAT SHE BECAME SHORT OF BREATH AND HAD TO INCREASE HER OXYGEN TO 3 LPM, WHEREAS SHE USUALLY WEARS IT AT 2 LPM. LUNGS WERE NOTED WITH RALES BILATERALLY. ON ARRIVAL TO ER, VITALS WERE 97.5-42-54-99-96/64. CBC REPORTS WBC 7.5, RBC 3.97, HGB 9.7, HCT 29.9. CMP REPORTS SODIUM 136, POTASSIM 4.3, BUN 37, CREATININE 1.5, GLUCOSE 184, MAGNESIUM 1.6, AST 110, ALT 81, BNP 1320. D-DIMER 2920. H-PYLORI NEGATIVE. URINALYSIS REPORTS WBC 10-12, LEUKOCYTES 2+, BACTERIA 2+, PROTEIN 2+. CHEST XRAY REPORTS CHROMIC MODERATE CARDIOMEGALY, NO DEFINITE ACUTE DISEASE. WE ADMITTED PATIENT FOR FURTHER TREATMENT AND EVALUATION. WE STARTED HER ON NS @80 ML/HR, LASIX 40MG IV BID, SLIDING SCALE INSULIN, ZOFRAN 4 MG IV Q4H PRN FOR NAUSEA, AND MORPHINE 2MG IVP Q4H PRN PAIN. ON THE MORNING FOLLOWING ADMISSION, HGB WAS 9.6, HCT 29.8. WE GAVE PATIENT PROCRIT 10,000 UNITS SC. WE ALSO STARTED HER ON ROCEPHIN 1 GM IV DAILY FOR A UTI. ON THE DAY OF DISCHARGE, PATIENT WAS ALERT AND ORIENTED, UP IN CHAIR. SHE HAD NO COMPLAINTS ON ROUNDS AND REPORTED FEELING MUCH BETTER. VITALS WERE 97.1-94-18 -99%-106/88. CBC WNL EXCEPT HBB 10.4, HCT 31.5. CMP WNL EXCEPT CHLORIDE 96, CARBON DIOXIDE 33.6, BUN 22, GLUCOSE 279. AST 96, ALT 107. CHEST XRAY REPORTED PERSISTENT CARDIOMEGALY AND IMPROVING PULMONARY VENOUS CONGESTION. WE PLANNED FOR DISCHARGE. INSTRUCTIONS FOR FOLLOW-UP AND MEDICATIONS WERE DISCUSSED WITH PATIENT AND FAMILY. BOTH VERBALIZED UNDERSTANDING. WE WILL DISCHARGE PATIENT WITH A PRESCRIPTION FOR HEMOCYTE PLUS 1 CAPSULE DAILY, CIPRO 500MG PO BID X 10 DAYS, ALDACTONE 25MG PO DAILY, AND CHANGE LASIX TO 40MG PO BID. PATIENT DISCHARGE HOME IN STABLE CONDITION WITH INSTRUCTIONS TO FOLLOW UP IN OFFICE ON WEDNESDAY. - Discharge Medications Discharge Medications: Clopidogrel Bisulfate [Clopidogrel] 75 mg PO DAILY 11/17/16 [History] Esomeprazole Magnesium 10 mg PO DAILY 11/17/16 [History] Glipizide 20 mg PO DAILY 11/17/16 [History] Lansoprazole [PREVACID 30 MG *] 30 mg PO DAILY 11/17/16 [History] Metformin HCl [Metformin HCl ER] 1,000 mg PO BID 11/17/16 [History] Metoprolol Succinate [Toprol Xl] 1 tab PO DAILY 11/17/16 [History] Niacin [Niacin ER 1000 mg] 2,000 mg PO HS 11/17/16 [History] Pregabalin 75 mg PO NEEDED 11/17/16 [History] Ranitidine HCl [Zantac] 300 mg PO HS PRN 11/17/16 [History] Rosuvastatin Calcium [Crestor] 40 mg PO HS 11/17/16 [History] Vitamin E 400 unit PO DAILY 11/17/16 [History] Zolpidem Tartrate 10 mg PO DAILY 11/17/16 [History] Ciprofloxacin HCl [CIPRO 500 MG TAB *] 500 mg PO Q12H #20 tab 11/19/16 [Rx] Furosemide [Lasix] 40 mg PO BID PRN #60 tab 11/19/16 [Rx] Iron Fum/Folic Acid/Mv,Min 15 [Hemocyte Plus 106-1 mg] 1 cap PO DAILY #30 cap [Rx] Spironolactone [Aldactone Tab 25 mg] 25 mg PO DAILY #30 tab 11/19/16 [Rx]
== END 2016-11-19 11:15 | disposition home health service (06) ==
LOC: ER 19:00 → ICU 20:47
PROVIDERS: ADMIT Internal Medicine; ATTEND Internal Medicine
DX: I50.9 Heart failure, unspecified (principal); E86.0 Dehydration; N39.0 Urinary tract infection, site not specified; R79.1 Abnormal coagulation profile; R94.31 Abnormal electrocardiogram [ECG] [EKG]; R06.02 Shortness of breath; D64.89 Other specified anemias; R74.8 Abnormal levels of other serum enzymes; I51.7 Cardiomegaly; R53.1 Weakness; R10.84 Generalized abdominal pain; R07.89 Other chest pain; E11.65 Type 2 diabetes mellitus with hyperglycemia; E78.2 Mixed hyperlipidemia; F51.01 Primary insomnia; R94.30 Abnormal result of cardiovascular function study, unspecified; R94.4 Abnormal results of kidney function studies
CPT/HCPCS: 36415; 71010; 80053; 80061; 81001; 82550; 82553; 83735; 83880; 84132; 84484; 85025; 85378; 85610; 85730; 86677; 87086; 93005; 93010; 96365; 99284; A4216; A4222; G0378; J0696; J0885; J1815; J1940

== ENCOUNTER → 2016-12-11 | Outpatient (CLI) | payer OTHER ==
[2016-11-19 08:08] VITALS: BP 106/68
[~2016-12-11] MED LIST: NS 100 ML IV 100 ML IV ONE
--- NOTE | 2016-12-11 08:31 | CT ---
HISTORY: Shortness of breath, elevated D-dimer Study: CT chest with contrast Comparison: August 09, 2015 Technique: Multiple axial images of the chest were obtained from the thoracic inlet to the upper abd omen with the administration of IV contrast. Coronal and sagittal reformatted 3 dimensional MIP imag es were also submitted utilizing CTA protocol. Findings: Scattered subcentimeter lymph nodes are seen within the mediastinum. The heart is enlarged. There is no pericardial effusion observed. Atherosclerotic changes are seen within the visualized coronary arteries and aorta. no definite filling defects are appreciated within the 1st or 2nd order branches of the pulmonary arterial system. The main pulmonary artery is somewhat prominent in appearance may reflect underlying pulmonary hypertension. Interstitial changes are again seen within both lungs wi thout evidence of focal consolidation. Minimal atelectasis is demonstrated within both lower lobes. IMPRESSION: 1. No CT evidence of pulmonary embolus is appreciated. 2. Cardiomegaly. Reported By:
== END | disposition home or self-care (01) | DRG 204 ==
LOC: RAD 07:24
PROVIDERS: ATTEND Nurse Practitioner Family
DX: R06.02 Shortness of breath (principal); R07.89 Other chest pain; I50.1 Left ventricular failure, unspecified; I25.10 Atherosclerotic heart disease of native coronary artery without angina pectoris; R89.9 Unspecified abnormal finding in specimens from other organs, systems and tissues; I51.7 Cardiomegaly
CPT/HCPCS: 71275; A4222

== ENCOUNTER → 2017-01-12 | Outpatient (CLI) | payer OTHER ==
--- NOTE | 2017-01-12 14:14 | CT ---
CT OF THE ABDOMEN AND PELVIS WITH CONTRAST HISTORY: Abdominal pain with nausea Comparison: 08/09/2015 Technique: Multiple axial images of the abdomen and pelvis were obtained from the lung bases to the pubic symphy sis follow the administration of IV contrast as well as oral contrast. Dose reduction techniques inc luding Automated Exposure Control (AEC) and adjustment of mA and kV were utlized. Findings: Marked cardiomegaly. There is no pericardial effusion. Lung bases are clear without focal consolidati on, pleural effusion or pneumothorax. Liver and spleen are normal in size, enhancement characteristics and contour. No focal lesions. The p ortal vein is patent. No ductal dilitation. Gallbladder is present. No calcified gallstones or gallbl adder wall thickening. The pancreas is unremarkable. Adrenal glands are normal. Kidneys enhance symme trically without hydronephrosis or nephrolithiasis. No bowel obstruction or inflammation. Gastric wall appear poles mildly thickened No abnormal appearin g mesenteric or retroperitoneal lymph nodes. No free fluid or fluid collections. The bladder is normal in appearance. Uterus and ovaries appear to be absent. No free fluid or abnorma l pelvic lymph nodes. No aggressive osseous lesions. IMPRESSION: 1. No source of patient's nausea is identified. 2. Massive cardiomegaly. Reported By:
== END | disposition home or self-care (01) | DRG 392 ==
LOC: RAD 10:53
PROVIDERS: ATTEND Nurse Practitioner Family
DX: R10.84 Generalized abdominal pain (principal); R10.817 Generalized abdominal tenderness; R11.0 Nausea; R19.5 Other fecal abnormalities; R89.8 Other abnormal findings in specimens from other organs, systems and tissues; I51.7 Cardiomegaly
CPT/HCPCS: 74177; A4222

== ENCOUNTER 2017-02-01 23:07 | Inpatient (IN) | payer OTHER ==
[2017-02-01] MEDS ORDERED: MORPHINE SULFATE INJ 2 MG INJ IVP PRN (23:23)
[2017-02-02] MEDS ORDERED: MORPHINE SULFATE INJ 2 MG INJ IVP ONE (00:06)
[2017-02-02 00:17] LABS: BASOPHILS # (AUTO) 0.1 X10^3/uL (0.0-0.1); BASOPHILS % (AUTO) 1.2 % (0.2-1.0); EOSINOPHILS # (AUTO) 0.1 x10^3/uL (0.0-0.2); EOSINOPHILS % (AUTO) 1.4 % (0.9-2.9); HEMATOCRIT 30.3 % (36.0-47.0); HEMOGLOBIN 9.6 g/dL (12.0-16.0); LYMPHOCYTES # (AUTO) 1.6 X10^3/uL (1.3-2.9); LYMPHOCYTES % (AUTO) 19.1 % (21.0-51.0); MEAN CORPUSCULAR HEMOGLOBIN 22.6 pg (27.0-34.0); MEAN CORPUSCULAR HGB CONC 31.5 g/dL (33.0-35.0); MEAN CORPUSCULAR VOLUME 71.7 fL (80.0-100.0); MEAN PLATELET VOLUME 8.2 fL (7.4-11.0); MONOCYTES # (AUTO) 0.5 x10^3/uL (0.3-0.8); MONOCYTES % (AUTO) 6.1 % (0.0-13.0); NEUTROPHILS % (AUTO) 72.2 % (42.0-75.0); PLATELET COUNT 287 X10^3/uL (150.0-450.0); RED BLOOD COUNT 4.23 X10^6/uL (3.5-5.4); RED CELL DISTRIBUTION WIDTH 17.8 % (11.6-16.5); WHITE BLOOD COUNT 8.3 X10^3/uL (3.6-10.0)
[2017-02-02 00:23] LABS: ALANINE AMINOTRANSFERASE 39 Units/L (12-78); ALBUMIN 3.4 g/dL (3.4-5.0); ALKALINE PHOSPHATASE 89 Units/L (46-116); ASPARTATE AMINO TRANSFERASE 55 Units/L (15-37); BLOOD UREA NITROGEN 19 mg/dL (7-18); CALCIUM 9.1 mg/dL (8.5-10.1); CARBON DIOXIDE 25.7 mmol/L (21-32); CHLORIDE 99 mmol/L (98-107); COR NA(FOR HYPERGLY) 139 mmol/L (136-145); CREATININE 1.19 mg/dL (0.55-1.02); SODIUM 138 mmol/L (136-145); TOTAL PROTEIN 7.7 g/dL (6.4-8.2); eGFR BLACK RACES 58 (>60); eGFR NON BLACK RACES 48 (>60)
[2017-02-02 00:38] LABS: ABG BASE EXCESS 3.5 mmol/L (-2.0-2.0)
[2017-02-02 00:39] LABS: ABG HCO3 26.7 mmol/L (22-26); FRACTIONATED INSPIRED OXYGEN 32
[2017-02-02 00:39] LABS: HYPOCHROMASIA 1+; MICROCYTOSIS 1+; PLATELET MORPHOLOGY COMMENT NORMAL (NORMAL)
[2017-02-02] MEDS: LASIX IVP SCH ×3 (00:40→23:45)
[2017-02-02 00:50] LABS: B-TYPE NATRIURETIC PEPTIDE 1480 pg/mL (0-79)
--- NOTE | 2017-02-02 06:37 | RAD ---
HISTORY: Shortness of breath, CHF Study: Single-view chest Comparison: 11/19/2016 Findings: Left-sided pacemaker is present with intact leads. There are again changes of CABG with median sterno eran sutures and metallic sutures and markers indicating coronary artery bypass grafts. There is card iomegaly with increasing pulmonary vascular congestion. There are signs of very early CHF. No edema, pleural fluid, infiltrate or pneumothorax is seen. Osseous structures are intact. IMPRESSION: Cardiomegaly with pulmonary vascular congestion and signs of very early CHF. Reported By:
[2017-02-02] MEDS ORDERED: GLUCOPHAGE ONE (06:57)
[2017-02-02] MEDS ORDERED: GLUCOPHAGE PO SCH (07:00)
[2017-02-02] MEDS ORDERED: GLUCOTROL PO SCH (07:00)
[2017-02-02] MEDS ORDERED: LEVEMIR SC SCH ×3 (07:00→21:00)
[2017-02-02 10:15] VITALS: BMI 30.2
[2017-02-02] MEDS: LANOXIN PO SCH (11:03)
[2017-02-02] MEDS: MORPHINE SULFATE INJ 2 MG INJ IVP SCH ×3 (11:03→22:08)
[2017-02-02] MEDS: KLONOPIN TAB 1 MG PO SCH ×2 (11:04→22:07)
[2017-02-02] MEDS: HumuLIN R SUBCUT PRN ×2 (11:22→16:38)
[2017-02-02] MEDS ORDERED: SNACK - Diabetic Appropriate PO SCH ×3 (20:00)
[2017-02-02] MEDS: SNACK - Diabetic Appropriate PO SCH (22:08)
[2017-02-02] MEDS ORDERED: PATIENT'S HOME MEDICATION (Ranitidine Hcl [Zantac] 300 MG) PO PRN (23:23)
[2017-02-02] MEDS ORDERED: NORCO 10/325 TAB PO PRN (23:23)
[2017-02-02] MEDS ORDERED: ZANTAC PO PRN (23:47)
[2017-02-03] MEDS: MORPHINE SULFATE INJ 2 MG INJ IVP SCH ×4 (04:16→21:00)
[2017-02-03 06:20] LABS: BASOPHILS # (AUTO) 0.1 X10^3/uL (0.0-0.1); BASOPHILS % (AUTO) 1.8 % (0.2-1.0); EOSINOPHILS # (AUTO) 0.1 x10^3/uL (0.0-0.2); EOSINOPHILS % (AUTO) 2.8 % (0.9-2.9); HEMATOCRIT 26.9 % (36.0-47.0); HEMOGLOBIN 8.6 g/dL (12.0-16.0); LYMPHOCYTES # (AUTO) 1.1 X10^3/uL (1.3-2.9); MEAN CORPUSCULAR HEMOGLOBIN 22.4 pg (27.0-34.0); MEAN CORPUSCULAR VOLUME 70.1 fL (80.0-100.0); MEAN PLATELET VOLUME 8.4 fL (7.4-11.0); MONOCYTES # (AUTO) 0.5 x10^3/uL (0.3-0.8); MONOCYTES % (AUTO) 8.8 % (0.0-13.0); NEUTROPHILS # (AUTO) 3.6 x10^3/uL (2.2-4.8); NEUTROPHILS % (AUTO) 66.6 % (42.0-75.0); PLATELET COUNT 235 X10^3/uL (150.0-450.0); RED BLOOD COUNT 3.84 X10^6/uL (3.5-5.4); RED CELL DISTRIBUTION WIDTH 17.9 % (11.6-16.5); WHITE BLOOD COUNT 5.3 X10^3/uL (3.6-10.0)
[2017-02-03 06:31] LABS: ALANINE AMINOTRANSFERASE 37 Units/L (12-78); ALBUMIN 3.1 g/dL (3.4-5.0); ALKALINE PHOSPHATASE 71 Units/L (46-116); ASPARTATE AMINO TRANSFERASE 50 Units/L (15-37); BLOOD UREA NITROGEN 22 mg/dL (7-18); CALCIUM 8.8 mg/dL (8.5-10.1); CARBON DIOXIDE 27.8 mmol/L (21-32); CHLORIDE 101 mmol/L (98-107); COR CA(FOR HYPOALB) 9.5 mg/dL (8.5-10.1); CREATININE 0.74 mg/dL (0.55-1.02); DIGOXIN < 0.20 ng/mL (0.9-2); SODIUM 140 mmol/L (136-145); TOTAL PROTEIN 6.8 g/dL (6.4-8.2); eGFR BLACK RACES > 60 (>60); eGFR NON BLACK RACES > 60 (>60)
[2017-02-03] MEDS ORDERED: K-RIDER 10 MEQ/NS 100 ML 10 MEQ/100 ML BAG IV PRN (06:37)
[2017-02-03] MEDS ORDERED: K-DUR TAB 20 MEQ PO PRN (06:37)
[2017-02-03] MEDS ORDERED: K-LYTE EFFERVESCENT PO PRN (06:37)
[2017-02-03 06:42] LABS: B-TYPE NATRIURETIC PEPTIDE 1190 pg/mL (0-79)
[2017-02-03] MEDS: POTASSIUM CHLORIDE LIQ 20 MEQ UDC PO PRN (06:59)
[2017-02-03 07:12] LABS: ANISOCYTOSIS SLIGHT; HYPOCHROMASIA 1+; MICROCYTOSIS SLIGHT; PLATELET MORPHOLOGY COMMENT NORMAL (NORMAL)
[2017-02-03] MEDS ORDERED: LEXAPRO ONE (08:23)
[2017-02-03] MEDS: LANOXIN PO SCH (08:33)
[2017-02-03] MEDS: LEXAPRO PO SCH (08:33)
[2017-02-03] MEDS: KLONOPIN TAB 1 MG PO SCH ×2 (08:34→21:00)
[2017-02-03] MEDS: ALDACTONE TAB 25 MG PO SCH (08:34)
[2017-02-03] MEDS: PLAVIX PO SCH (08:35)
[2017-02-03] MEDS ORDERED: LANOXIN INJ IVP ONE (09:28)
[2017-02-03] MEDS ORDERED: MORPHINE SULFATE INJ 2 MG INJ IVP SCH (09:29)
[2017-02-03] MEDS ORDERED: NORCO 10/325 TAB PO PRN (09:29)
[2017-02-03] MEDS: DESYREL PO SCH ×2 (09:33→21:00)
--- NOTE | 2017-02-03 10:45 | DR.H&P ---
H&P - History & Physical for Day of: H&P Date: 02/01/17 - Chief Complaint Chief Complaint: SHORT OF BREATH - Allergies Allergies/Adverse Reactions: Allergies Allergy/AdvReac Type Severity Reaction Status Date / Time No Known Allergies AdvReac Verified 11/17/16 18:52 - History of Present Illness History of Present Illness: Ms. Vickers is a 66 year old patient of ours who was a direct admission for CHF. Patient presented with complaints of increasing shortness of breath since Wednesday. Patient states she has been taking Lasix at home with no improvement. Patient has a known history of CHF. On arrival, patient was noted with labored respirations. On admission, vital signs were 98.4 , 104, 25, 100% 4L NC, 111/63. A CBC, CMP, ABG, and chest xray was obtained on admission. Abnormal lab values include the following: HGB 9.6, HCT 30.3, BUN 19 , CREATININE 1.19, GFR 48, GLUCOSE 162, AST 55, BNP 1480. ABG reported PH 7.490 , P02 41, HC03 26.7, 02 SATURATION 81, BASE EXCESS 3.5. A chest xray was obtained and reported Cardiomegaly with pulmonary vascular congestion and signs of very early CHF. On admission, she was started on Morphine 2mg IV Q4hr PRN sob , Heplock Flush TID, Lasix 40mg IV Q12hr. We planned to follow up with am labs and continue to monitor. - Past Medical History Past Medical History: Anemia, CHF, Depression, Diabetes, Dyslipidemia, GERD, PUD Additional Medical History: CATARACTS, RETINAL DETACHMENT, HIATAL HERNIA - Past Surgical History Surgical History: Cholecystectomy, Hysterectomy, Tonsillectomy Additional Surgical History: BYPASS X 4 - Family History Family Medical History: Diabetes Mellitus, [place], Hypertension - Social History Does patient currently use any type of tobacco product: No Have you used tobacco products in the last 12 months: No Type of Tobacco Use: None Does any household member use tobacco: No Alcohol Use: None Drug Use: None - Medications Home Medications: Aspirin EC [ASPIRIN EC 81 MG *] 81 mg PO HS 02/02/17 [History Confirmed 02/02/17 ] Escitalopram Oxalate [LEXAPRO 10 MG TAB *] 10 mg PO DAILY 02/02/17 [History Confirmed 02/02/17] Furosemide [Lasix] 40 mg PO BID 10/10/17 [History Confirmed 02/02/17] Hydrocodone/Acetaminophen [Hydrocodon-Acetaminophn 10-325] 1 tab PO BID PRN 02/09 [History Confirmed 02/02/17] Insulin Detemir (Levemir) [LEVEMIR INSULIN *] 45 units SC DAILY 02/02/17 [ History Confirmed 02/02/17] Insulin Detemir (Levemir) [LEVEMIR INSULIN *] 65 units SC HS 02/02/17 [History Confirmed 02/02/17] Potassium Chloride [K-Tab ER] 10 meq PO DAILY 02/02/17 [History Confirmed ] Pregabalin [LYRICA 75 MG *] 75 mg PO BID PRN 02/02/17 [History Confirmed ] - Review of Systems Constitutional: Weakness Eyes: No Symptoms Reported ENT: No Symptoms Reported Respiratory: See HPI, Shortness of Breath, SOB with Excertion Cardiovascular: No Symptoms Reported Gastrointestinal: No Symptoms Reported Genitourinary: No Symptoms Reported Musculoskeletal: No Symptoms Reported Skin: No Symptoms Reported Neurological: Weakness - Physical Exam Vital Signs: Temperature 97.8 F Pulse Rate [Apical] 109 Pulse Rate 102 Respiratory Rate 24 Blood Pressure [Right Arm] 107/83 Blood Pressure 106/68 O2 Sat by Pulse Oximetry 100 Oriented: Normal Eyes: Normal Ear: Normal Nose: Normal Throat: Normal Respiratory: Diminished Throughout Cardiovascular: Tachycardia : Normal Auscultation: Bowel Sounds: Normal Palpation: Normal Tenderness: Normal Skin: Normal Musculoskeletal: Normal Psychiatric: Normal Mood Description: Calm Affect: Normal Speech Pattern: Clear - Assessment/Plan (1) CHF exacerbation Qualifiers: Congestive heart failure type: systolic Qualified Code(s): I50.23 - Acute on chronic systolic (congestive) heart failure Status: Acute Plan: LASIX 40MG IV BID, MONITOR LABS AND CHEST XRAY, CONTINUE TO MONITOR
[2017-02-03] MEDS: LASIX IVP SCH (10:48)
--- NOTE | 2017-02-03 14:48 | PCM.PROG ---
Progress Note - Progress Note for Day of Date: 02/02/17 - Subjective Subjective: WAS ADMITTED FOR CHF EXACERBATION. TODAY, SHE IS ALERT AND ORIENTED, SITTING UP IN CHAIR ON MORNING ROUNDS. SHE CONTINUES WITH SHORTNESS OF BREATH. PATIENT REPORTS THAT SHE HAS NO IMPROVEMENT IN SYMPTOMS SINCE ADMISSION. ON EXAMINATION, LUNGS ARE NOTED WITH CRACKLES BILATERALLY TO AUSCULTATION. ABDOMEN IS ROUND, SOFT, AND NON-TENDER WITH NORMAL BOWEL SOUNDS NOTED IN ALL QUADRANTS. SHE IS NOTED WITH 1+ PITTING EDEMA TO BILATERAL LOWER EXTREMITIES. SHE IS WEARING NASAL CANNULA WITH OXYGEN AT 2L/MIN. HER VITAL SIGNS THIS MORNING ARE 98.4-99-26-100%-94/61. LABS WERE DRAWN ON ADMISSION AT MIDNIGHT. PATIENT REPORTS HAVING AN ECHO 2 WEEKS AGO AT THE [facility] IN [place]. WE WILL OBTAIN THIS REPORT. WE DISCUSSED WITH PATIENT THE NEED TO WEAR AND BE COMPLIANT WITH CPAP. PATIENT STATES THAT SHE HAS A HARD TIME TOLERATING WEARING CPAP, BUT AGREES TO BE COMPLAINT. TODAY, WE WILL START MORPHINE MG IV QID TO ASSIST IN PATIENT'S RESPIRATORY EFFORTS. OTHERWISE, WE WILL CONTINUE WITH CURRENT PLAN OF CARE. WE PLAN TO FOLLOW UP WITH AM LABS AND CHEST XRAY AND CONTINUE TO MONITOR. WE WILL RESTRICT FLUIDS TO 1000 ML/DAY. - Past Medical Family Social History Past Med/Fam/Surg Hx: No changes since H&P Allergies: Allergies No Known Allergies Adverse Reaction (Verified 11/17/16 18:52) - Review of Systems ROS: No change since H&P - Vital Signs and I&O's Vital Signs: Temperature 97.7 F Pulse Rate [Apical] 88 Pulse Rate 102 Respiratory Rate 22 Blood Pressure [Right Arm] 98/53 Blood Pressure 106/68 O2 Sat by Pulse Oximetry 100 Intake and Output: Intake & Output 02/01/17 02/02/17 02/03/17 02/04/17 11:59 11:59 11:59 11:59 Intake Total 535 980 400 Output Total 1600 1100 Balance -1065 -120 400 - Physical Exam Oriented: Normal Eyes: Normal Ear: Normal Nose: Normal Throat: Normal Respiratory: Generalized, OTHER (CRACKLES) Cardiovascular: Tachycardia : Normal Auscultation: Bowel Sounds: Normal Palpation: Normal Tenderness: Normal Skin: Normal Musculoskeletal: Normal Psychiatric: Normal Mood Description: Calm Affect: Normal Speech Pattern: Clear - Laboratory and Diagnostics Result Diagrams: 02/03/17 05:29 02/03/17 09:12 Labs: Laboratory WBC 5.3 X10^3/uL (3.6-10.0) 02/03/17 05:29 RBC 3.84 X10^6/uL (3.5-5.4) 02/03/17 05:29 Hgb 8.6 g/dL (12.0-16.0) L 02/03/17 05:29 Hct 26.9 % (36.0-47.0) L 02/03/17 05:29 MCV 70.1 fL (80.0-100.0) L 02/03/17 05:29 MCH 22.4 pg (27.0-34.0) L 02/03/17 05:29 MCHC 32.0 g/dL (33.0-35.0) L 02/03/17 05:29 RDW 17.9 % (11.6-16.5) H 02/03/17 05:29 Plt Count 235 X10^3/uL (150.0-450.0) 02/03/17 05:29 Plt Count Comment Adequate (ADEQUATE) 02/03/17 05:29 MPV 8.4 fL (7.4-11.0) 02/03/17 05:29 Neut % 66.6 % (42.0-75.0) 02/03/17 05:29 Lymph % 20.0 % (21.0-51.0) L 02/03/17 05:29 [place] % 8.8 % (0.0-13.0) 02/03/17 05:29 Eos % 2.8 % (0.9-2.9) 02/03/17 05:29 Baso % 1.8 % (0.2-1.0) H 02/03/17 05:29 Neut # 3.6 x10^3/uL (2.2-4.8) 02/03/17 05:29 Lymph # 1.1 X10^3/uL (1.3-2.9) L 02/03/17 05:29 [place] # 0.5 x10^3/uL (0.3-0.8) 02/03/17 05:29 Eos # 0.1 x10^3/uL (0.0-0.2) 02/03/17 05:29 Baso # 0.1 X10^3/uL (0.0-0.1) 02/03/17 05:29 Absolute Nucleated RBC 0.1 /100WBC 02/03/17 05:29 Plt Morphology Comment Normal (NORMAL) 02/03/17 05:29 RBC Morphology Abnormal (NORMAL) A 02/03/17 05:29 Hypochromasia 1+ A 02/03/17 05:29 Anisocytosis Slight A 02/03/17 05:29 Microcytosis Slight A 02/03/17 05:29 Sample Site Rbra 02/02/17 00:28 ABG pH 7.490 (7.35-7.45) H 02/02/17 00:28 ABG pCO2 35.0 mmHg (35.0-45.0) 02/02/17 00:28 ABG pO2 41.0 mmHg (80.0-100.0) L* 02/02/17 00:28 ABG HCO3 26.7 mmol/L (22-26) H 02/02/17 00:28 ABG O2 Saturation 81.0 % (90-100) L* 02/02/17 00:28 ABG Base Excess 3.5 mmol/L (-2.0-2.0) H 02/02/17 00:28 Cooper Test Na 02/02/17 00:28 A-a Gradient 143.0 mmHg 02/02/17 00:28 FiO2 32 02/02/17 00:28 Blood Gas Comments Hardik abg well-mtf 02/02/17 00:28 Sodium 140 mmol/L (136-145) 02/03/17 05:29 Corrected Sodium TNP 02/03/17 05:29 Potassium 4.7 mmol/L (3.5-5.1) 02/03/17 09:12 Chloride 101 mmol/L (98-107) 02/03/17 05:29 Carbon Dioxide 27.8 mmol/L (21-32) 02/03/17 05:29 BUN 22 mg/dL (7-18) H 02/03/17 05:29 Creatinine 0.74 mg/dL (0.55-1.02) 02/03/17 05:29 Est GFR (MDRD) Af Amer > 60 (>60) 02/03/17 05:29 Est GFR (MDRD) Non-Af > 60 (>60) 02/03/17 05:29 Glucose 110 mg/dL (65-99) H 02/03/17 05:29 POC Glucose (mg/dL) 109 mg/dL (65-99) H 02/03/17 11:10 Calcium 8.8 mg/dL (8.5-10.1) 02/03/17 05:29 Corrected Calcium 9.5 mg/dL (8.5-10.1) 02/03/17 05:29 Total Bilirubin 0.90 mg/dL (0.2-1.0) 02/03/17 05:29 AST 50 Units/L (15-37) H 02/03/17 05:29 ALT 37 Units/L (12-78) 02/03/17 05:29 Alkaline Phosphatase 71 Units/L (46-116) 02/03/17 05:29 B-Natriuretic Peptide 1190 pg/mL (0-79) H* 02/03/17 05:29 Total Protein 6.8 g/dL (6.4-8.2) 02/03/17 05:29 Albumin 3.1 g/dL (3.4-5.0) L 02/03/17 05:29 Globulin 3.7 g/dL (2.5-4.5) 02/03/17 05:29 Albumin/Globulin Ratio 0.8 Ratio (1.1-2.1) L 02/03/17 05:29 Digoxin < 0.20 ng/mL (0.9-2) L 02/03/17 05:29 - Plan (1) CHF exacerbation Status: Acute Qualifiers: Congestive heart failure type: systolic Qualified Code(s): I50.23 - Acute on chronic systolic (congestive) heart failure Plan: LASIX 40MG IV BID, BIPAP, MORPHINE 1MG IV QID, MONITOR LABS AND CHEST XRAY , CONTINUE TO MONITOR (2) Diabetes Status: Chronic Qualifiers: Diabetes mellitus type: type 2 Diabetes mellitus complication status: with unspecified complications Diabetes mellitus assistant terminal manager insulin use: unspecified jail insulin use status Qualified Code(s): E11.8 - Type 2 diabetes mellitus with unspecified complications (3) GERD (gastroesophageal reflux disease) Status: Chronic Qualifiers: Esophagitis presence: esophagitis presence not specified Qualified Code(s) : K21.9 - Gastro-esophageal reflux disease without esophagitis Plan: CONTINUE ZANTAC, CONTINUE TO MONITOR (4) Hyperlipidemia Status: Chronic Qualifiers: Hyperlipidemia type: mixed hyperlipidemia Qualified Code(s): E78.2 - Mixed hyperlipidemia Plan: CONTINUE CRESTOR, CONTINUE TO MONITOR (5) Depression Status: Chronic Qualifiers: Depression Type: major depressive disorder Major depression recurrence: recurrent Active/Remission status: remission status unspecified Qualified Code(s): F33.9 - Major depressive disorder, recurrent, unspecified Plan: CONTINUE LEXAPRO, CONTINUE TO MONITOR (6) Coronary artery disease Status: Chronic Qualifiers: Coronary Disease-Associated Artery/Lesion type: bypass graft [place] vs. transplanted heart: [place] heart Associated angina: without angina Qualified Code(s): I25.810 - Atherosclerosis of coronary artery bypass graft(s) without angina pectoris Plan: CONTINUE PLAVIX 75MG DAILY, CONTINUE TO MONITOR
[2017-02-03] MEDS ORDERED: AMBIEN PO SCH (21:00)
[2017-02-03] MEDS ORDERED: PATIENT'S HOME MEDICATION (Rosuvastatin Calcium [Crestor] 40 MG) PO SCH (21:00)
[2017-02-03] MEDS ORDERED: NIACIN 2000 MG PO SCH (21:00)
[2017-02-03] MEDS: ASPIRIN EC 81 MG PO SCH (21:08)
[2017-02-03] MEDS: CRESTOR TAB 10 MG PO SCH (21:08)
[2017-02-03] MEDS: NIASPAN ER TAB 500 MG PO SCH (21:09)
[2017-02-03] MEDS: SNACK - Diabetic Appropriate PO SCH (21:09)
[2017-02-03] MEDS: LEVEMIR SC SCH (21:16)
[2017-02-04] MEDS: MORPHINE SULFATE INJ 2 MG INJ IVP SCH ×2 (03:00→09:10)
[2017-02-04 06:09] LABS: BASOPHILS # (AUTO) 0.1 X10^3/uL (0.0-0.1); BASOPHILS % (AUTO) 1.4 % (0.2-1.0); EOSINOPHILS # (AUTO) 0.2 x10^3/uL (0.0-0.2); EOSINOPHILS % (AUTO) 3.3 % (0.9-2.9); HEMATOCRIT 27.6 % (36.0-47.0); HEMOGLOBIN 8.8 g/dL (12.0-16.0); LYMPHOCYTES # (AUTO) 0.8 X10^3/uL (1.3-2.9); LYMPHOCYTES % (AUTO) 17.2 % (21.0-51.0); MEAN CORPUSCULAR HEMOGLOBIN 22.2 pg (27.0-34.0); MEAN CORPUSCULAR HGB CONC 31.8 g/dL (33.0-35.0); MEAN CORPUSCULAR VOLUME 70.1 fL (80.0-100.0); MEAN PLATELET VOLUME 8.4 fL (7.4-11.0); MONOCYTES # (AUTO) 0.4 x10^3/uL (0.3-0.8); MONOCYTES % (AUTO) 8.4 % (0.0-13.0); NEUTROPHILS # (AUTO) 3.4 x10^3/uL (2.2-4.8); NEUTROPHILS % (AUTO) 69.7 % (42.0-75.0); PLATELET COUNT 230 X10^3/uL (150.0-450.0); RED BLOOD COUNT 3.95 X10^6/uL (3.5-5.4); RED CELL DISTRIBUTION WIDTH 17.6 % (11.6-16.5); WHITE BLOOD COUNT 4.9 X10^3/uL (3.6-10.0)
[2017-02-04] MEDS: HumuLIN R SUBCUT PRN ×3 (06:22→16:38)
[2017-02-04 06:31] LABS: ALANINE AMINOTRANSFERASE 49 Units/L (12-78); ALBUMIN 3.1 g/dL (3.4-5.0); ALKALINE PHOSPHATASE 82 Units/L (46-116); ASPARTATE AMINO TRANSFERASE 68 Units/L (15-37); BLOOD UREA NITROGEN 20 mg/dL (7-18); CALCIUM 8.8 mg/dL (8.5-10.1); CARBON DIOXIDE 31.4 mmol/L (21-32); CHLORIDE 102 mmol/L (98-107); COR CA(FOR HYPOALB) 9.5 mg/dL (8.5-10.1); COR NA(FOR HYPERGLY) 141 mmol/L (136-145); CREATININE 0.77 mg/dL (0.55-1.02); DIGOXIN 0.99 ng/mL (0.9-2); SODIUM 139 mmol/L (136-145); TOTAL PROTEIN 6.9 g/dL (6.4-8.2); eGFR BLACK RACES > 60 (>60); eGFR NON BLACK RACES > 60 (>60)
[2017-02-04 06:49] LABS: HYPOCHROMASIA 1+; PLATELET MORPHOLOGY COMMENT NORMAL (NORMAL)
[2017-02-04] MEDS ORDERED: LEXAPRO ONE (08:36)
[2017-02-04] MEDS: LANOXIN PO SCH (09:05)
[2017-02-04] MEDS: ALDACTONE TAB 25 MG PO SCH (09:05)
[2017-02-04] MEDS: KLONOPIN TAB 1 MG PO SCH (09:05)
[2017-02-04] MEDS: LASIX IVP SCH ×2 (09:09→21:08)
[2017-02-04] MEDS: LEXAPRO PO SCH (09:10)
[2017-02-04] MEDS: PLAVIX PO SCH (09:10)
[2017-02-04] MEDS: HEMOCYTE-PLUS PO SCH (10:37)
--- NOTE | 2017-02-04 11:40 | PCM.PROG ---
Progress Note - Progress Note for Day of Date: 02/03/17 - Subjective Subjective: WAS ADMITTED FOR CHF EXACERBATION. TODAY, SHE IS ALERT AND ORIENTED, SITTING UP IN CHAIR ON MORNING ROUNDS. SHE CONTINUES WITH SHORTNESS OF BREATH, BUT REPORTS THAT IT HAS SLIGHTLY IMPROVED SINCE YESTERDAY. ON EXAMINATION, LUNGS ARE NOTED WITH DIMINISHED LUNG SOUNDS. ABDOMEN IS ROUND, SOFT , AND NON-TENDER WITH NORMAL BOWEL SOUNDS NOTED IN ALL QUADRANTS. SHE CONTINUES WITH EDEMA TO BILATERAL LOWER EXTREMITIES. SHE IS WEARING NASAL CANNULA WITH OXYGEN AT 2L/MIN. HER VITAL SIGNS THIS MORNING ARE 97.3-525-86-100%-141/75. A CBC, CMP, AND BNP WERE OBTAINED THIS MORNING. ABNORMAL LAB VALUES INCLUDE THE FOLLOWING: HGB 8.6, HCT 26.9, POTASSIUM 3.0, BUN 22, GLUCOSE 110, AST 50, BNP 1190, ALBUMIN 3.1. A CHEST XRAY WAS OBTAINED AND REPORTED NO ACUTE CARDIOPULMONARY DISEASE. PATIENT REPORTS NOT BEING ABLE TO WEAR CPAP FOR AN EXTENDED PERIOD OF TIME. WE DISCUSSED WITH PATIENT THE NEED TO WEAR IT WHEN SLEEPING. TODAY, WE WILL INCREASE MORPHINE TO 2MG IV QID TO ASSIST IN PATIENT'S RESPIRATORY EFFORTS. WE WILL START TRAZADONE 150MG HS AND INCREASE LASIX TO 60MG IV BID. 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 WE WILL ORDER A ONE TIME DOSE OF DIGOXIN 0.5MG IV. OTHERWISE, WE WILL CONTINUE WITH CURRENT PLAN OF CARE. WE PLAN TO FOLLOW UP WITH AM LABS AND CHEST XRAY AND CONTINUE TO MONITOR. WE WILL RESTRICT FLUIDS TO 1000 ML/DAY. - Past Medical Family Social History Past Med/Fam/Surg Hx: No changes since H&P Allergies: Allergies No Known Allergies Adverse Reaction (Verified 11/17/16 18:52) - Review of Systems ROS: No change since H&P - Vital Signs and I&O's Vital Signs: Temperature 98.0 F Pulse Rate [Apical] 79 Pulse Rate 88 Respiratory Rate 24 Blood Pressure [Right Arm] 119/79 Blood Pressure 106/68 O2 Sat by Pulse Oximetry 94 Intake and Output: Intake & Output 02/01/17 02/02/17 02/03/17 02/04/17 11:59 11:59 11:59 11:59 Intake Total 224 549 0393 Output Total 1600 1100 1600 Balance -3754 -120 600 - Physical Exam Oriented: Normal Eyes: Normal Ear: Normal Nose: Normal Throat: Normal Respiratory: Generalized, OTHER (CRACKLES) Cardiovascular: Edema : Normal Auscultation: Bowel Sounds: Normal Palpation: Normal Tenderness: Normal Skin: Normal Musculoskeletal: Normal Psychiatric: Normal Mood Description: Calm Affect: Normal Speech Pattern: Clear, Appropriate - Laboratory and Diagnostics Result Diagrams: 02/04/17 05:35 02/04/17 05:35 Labs: Laboratory WBC 4.9 X10^3/uL (3.6-10.0) 02/04/17 05:35 RBC 3.95 X10^6/uL (3.5-5.4) 02/04/17 05:35 Hgb 8.8 g/dL (12.0-16.0) L 02/04/17 05:35 Hct 27.6 % (36.0-47.0) L 02/04/17 05:35 MCV 70.1 fL (80.0-100.0) L 02/04/17 05:35 MCH 22.2 pg (27.0-34.0) L 02/04/17 05:35 MCHC 31.8 g/dL (33.0-35.0) L 02/04/17 05:35 RDW 17.6 % (11.6-16.5) H 02/04/17 05:35 Plt Count 230 X10^3/uL (150.0-450.0) 02/04/17 05:35 Plt Count Comment Adequate (ADEQUATE) 02/04/17 05:35 MPV 8.4 fL (7.4-11.0) 02/04/17 05:35 Neut % 69.7 % (42.0-75.0) 02/04/17 05:35 Lymph % 17.2 % (21.0-51.0) L 02/04/17 05:35 [place] % 8.4 % (0.0-13.0) 02/04/17 05:35 Eos % 3.3 % (0.9-2.9) H 02/04/17 05:35 Baso % 1.4 % (0.2-1.0) H 02/04/17 05:35 Neut # 3.4 x10^3/uL (2.2-4.8) 02/04/17 05:35 Lymph # 0.8 X10^3/uL (1.3-2.9) L 02/04/17 05:35 [place] # 0.4 x10^3/uL (0.3-0.8) 02/04/17 05:35 Eos # 0.2 x10^3/uL (0.0-0.2) 02/04/17 05:35 Baso # 0.1 X10^3/uL (0.0-0.1) 02/04/17 05:35 Absolute Nucleated RBC 0.0 /100WBC 02/04/17 05:35 Plt Morphology Comment Normal (NORMAL) 02/04/17 05:35 RBC Morphology Abnormal (NORMAL) A 02/04/17 05:35 Hypochromasia 1+ A 02/04/17 05:35 Anisocytosis Slight A 02/03/17 05:29 Microcytosis Slight A 02/03/17 05:29 Sample Site Rbra 02/02/17 00:28 ABG pH 7.490 (7.35-7.45) H 02/02/17 00:28 ABG pCO2 35.0 mmHg (35.0-45.0) 02/02/17 00:28 ABG pO2 41.0 mmHg (80.0-100.0) L* 02/02/17 00:28 ABG HCO3 26.7 mmol/L (22-26) H 02/02/17 00:28 ABG O2 Saturation 81.0 % (90-100) L* 02/02/17 00:28 ABG Base Excess 3.5 mmol/L (-2.0-2.0) H 02/02/17 00:28 Cooper Test Na 02/02/17 00:28 A-a Gradient 143.0 mmHg 02/02/17 00:28 FiO2 32 02/02/17 00:28 Blood Gas Comments Hardik abg well-mtf 02/02/17 00:28 Sodium 139 mmol/L (136-145) 02/04/17 05:35 Corrected Sodium 141 mmol/L (136-145) 02/04/17 05:35 Potassium 3.6 mmol/L (3.5-5.1) 02/04/17 05:35 Chloride 102 mmol/L (98-107) 02/04/17 05:35 Carbon Dioxide 31.4 mmol/L (21-32) 02/04/17 05:35 BUN 20 mg/dL (7-18) H 02/04/17 05:35 Creatinine 0.77 mg/dL (0.55-1.02) 02/04/17 05:35 Est GFR (MDRD) Af Amer > 60 (>60) 02/04/17 05:35 Est GFR (MDRD) Non-Af > 60 (>60) 02/04/17 05:35 Glucose 192 mg/dL (65-99) H 02/04/17 05:35 POC Glucose (mg/dL) 196 mg/dL (65-99) H 02/04/17 05:40 Calcium 8.8 mg/dL (8.5-10.1) 02/04/17 05:35 Corrected Calcium 9.5 mg/dL (8.5-10.1) 02/04/17 05:35 Total Bilirubin 1.00 mg/dL (0.2-1.0) 02/04/17 05:35 AST 68 Units/L (15-37) H 02/04/17 05:35 ALT 49 Units/L (12-78) 02/04/17 05:35 Alkaline Phosphatase 82 Units/L (46-116) 02/04/17 05:35 B-Natriuretic Peptide 1370 pg/mL (0-79) H* 02/04/17 05:35 Total Protein 6.9 g/dL (6.4-8.2) 02/04/17 05:35 Albumin 3.1 g/dL (3.4-5.0) L 02/04/17 05:35 Globulin 3.8 g/dL (2.5-4.5) 02/04/17 05:35 Albumin/Globulin Ratio 0.8 Ratio (1.1-2.1) L 02/04/17 05:35 Digoxin 0.99 ng/mL (0.9-2) 02/04/17 05:35 - Plan (1) CHF exacerbation Status: Acute Qualifiers: Congestive heart failure type: systolic Qualified Code(s): I50.23 - Acute on chronic systolic (congestive) heart failure Plan: LASIX 60MG IV BID, BIPAP, MORPHINE 2MG IV QID, MONITOR LABS AND CHEST XRAY , CONTINUE TO MONITOR (2) Diabetes Status: Chronic Qualifiers: Diabetes mellitus type: type 2 Diabetes mellitus complication status: with unspecified complications Diabetes mellitus watermelon harvesting supervisor insulin use: unspecified watermelon harvesting supervisor insulin use status Qualified Code(s): E11.8 - Type 2 diabetes mellitus with unspecified complications Plan: LEVEMIR 84 UNITS HS, SLIDING SCALE INSULIN, CONTINUE TO MONITOR (3) GERD (gastroesophageal reflux disease) Status: Chronic Qualifiers: Esophagitis presence: esophagitis presence not specified Qualified Code(s) : K21.9 - Gastro-esophageal reflux disease without esophagitis Plan: CONTINUE ZANTAC, CONTINUE TO MONITOR (4) Hyperlipidemia Status: Chronic Qualifiers: Hyperlipidemia type: mixed hyperlipidemia Qualified Code(s): E78.2 - Mixed hyperlipidemia Plan: CONTINUE CRESTOR, CONTINUE TO MONITOR (5) Depression Status: Chronic Qualifiers: Depression Type: major depressive disorder Major depression recurrence: recurrent Active/Remission status: remission status unspecified Qualified Code(s): F33.9 - Major depressive disorder, recurrent, unspecified Plan: CONTINUE LEXAPRO, CONTINUE TO MONITOR (6) Coronary artery disease Status: Chronic Qualifiers: Coronary Disease-Associated Artery/Lesion type: bypass graft [place] vs. transplanted heart: [place] heart Associated angina: without angina Qualified Code(s): I25.810 - Atherosclerosis of coronary artery bypass graft(s) without angina pectoris Plan: CONTINUE PLAVIX 75MG DAILY, CONTINUE TO MONITOR (7) Atrial fibrillation with controlled ventricular rate Status: Acute Plan: DIGOXIN 0.5MG IV X 1, DIGOXIN 0.125MG PO DAILY, CONTINUE TO MONITOR
[2017-02-04] MEDS ORDERED: MORPHINE SULFATE INJ 2 MG INJ IVP PRN (12:30)
[2017-02-04] MEDS ORDERED: KLONOPIN TAB 1 MG PO SCH (21:00)
[2017-02-04] MEDS: ASPIRIN EC 81 MG PO SCH (21:07)
[2017-02-04] MEDS: NIASPAN ER TAB 500 MG PO SCH (21:07)
[2017-02-04] MEDS: CRESTOR TAB 10 MG PO SCH (21:07)
[2017-02-04] MEDS: SNACK - Diabetic Appropriate PO SCH (21:08)
[2017-02-04] MEDS: LEVEMIR SC SCH (21:08)
[2017-02-05] MEDS: DESYREL PO SCH (00:10)
[2017-02-05 06:08] LABS: BASOPHILS # (AUTO) 0.1 X10^3/uL (0.0-0.1); BASOPHILS % (AUTO) 1.8 % (0.2-1.0); EOSINOPHILS # (AUTO) 0.2 x10^3/uL (0.0-0.2); EOSINOPHILS % (AUTO) 3.7 % (0.9-2.9); HEMATOCRIT 28.6 % (36.0-47.0); LYMPHOCYTES % (AUTO) 18.8 % (21.0-51.0); MEAN CORPUSCULAR HEMOGLOBIN 22.3 pg (27.0-34.0); MEAN CORPUSCULAR HGB CONC 31.5 g/dL (33.0-35.0); MEAN CORPUSCULAR VOLUME 70.8 fL (80.0-100.0); MEAN PLATELET VOLUME 8.5 fL (7.4-11.0); MONOCYTES # (AUTO) 0.5 x10^3/uL (0.3-0.8); NEUTROPHILS # (AUTO) 3.4 x10^3/uL (2.2-4.8); NEUTROPHILS % (AUTO) 66.7 % (42.0-75.0); PLATELET COUNT 230 X10^3/uL (150.0-450.0); RED BLOOD COUNT 4.03 X10^6/uL (3.5-5.4); RED CELL DISTRIBUTION WIDTH 17.3 % (11.6-16.5); WHITE BLOOD COUNT 5.1 X10^3/uL (3.6-10.0)
[2017-02-05] MEDS: HumuLIN R SUBCUT PRN (06:11)
[2017-02-05 06:22] LABS: ALANINE AMINOTRANSFERASE 42 Units/L (12-78); ALBUMIN 3.1 g/dL (3.4-5.0); ALKALINE PHOSPHATASE 82 Units/L (46-116); ASPARTATE AMINO TRANSFERASE 49 Units/L (15-37); BLOOD UREA NITROGEN 14 mg/dL (7-18); CARBON DIOXIDE 28.9 mmol/L (21-32); CHLORIDE 102 mmol/L (98-107); COR CA(FOR HYPOALB) 9.7 mg/dL (8.5-10.1); COR NA(FOR HYPERGLY) 144 mmol/L (136-145); DIGOXIN 0.65 ng/mL (0.9-2); HYPOCHROMASIA 1+; PLATELET MORPHOLOGY COMMENT NORMAL (NORMAL); SODIUM 141 mmol/L (136-145); TOTAL PROTEIN 6.8 g/dL (6.4-8.2); eGFR BLACK RACES > 60 (>60); eGFR NON BLACK RACES > 60 (>60)
[2017-02-05] MEDS: POTASSIUM CHLORIDE LIQ 20 MEQ UDC PO PRN (06:50)
[2017-02-05] MEDS ORDERED: LEXAPRO ONE (08:44)
[2017-02-05] MEDS: ALDACTONE TAB 25 MG PO SCH (09:15)
[2017-02-05] MEDS: LANOXIN PO SCH (09:16)
[2017-02-05] MEDS: HEMOCYTE-PLUS PO SCH (09:16)
[2017-02-05] MEDS: LEXAPRO PO SCH (09:16)
[2017-02-05] MEDS: LASIX IVP SCH (09:16)
[2017-02-05] MEDS: PLAVIX PO SCH (09:17)
[2017-02-05 09:43] VITALS: BP 97/54
--- NOTE | 2017-02-09 10:07 | PCM.PROG ---
Progress Note - Progress Note for Day of Date: 02/04/17 - Subjective Subjective: WAS ADMITTED FOR CHF EXACERBATION. TODAY, SHE IS ALERT AND ORIENTED, SITTING UP IN CHAIR ON MORNING ROUNDS. SHE CONTINUES WITH SHORTNESS OF BREATH. ON EXAMINATION, LUNGS ARE NOTED WITH DIMINISHED LUNG SOUNDS. ABDOMEN IS ROUND, SOFT, AND NON-TENDER WITH NORMAL BOWEL SOUNDS NOTED IN ALL QUADRANTS. SHE CONTINUES WITH EDEMA TO BILATERAL LOWER EXTREMITIES. SHE IS WEARING NASAL CANNULA WITH OXYGEN AT 2L/MIN. HER VITAL SIGNS THIS MORNING ARE 98.0-80-21-100%- 116/67. A CBC, CMP, AND BNP WERE OBTAINED THIS MORNING. ABNORMAL LAB VALUES INCLUDE THE FOLLOWING: HGB 8.8, HCT 27.6, BUN 20, GLUCOSE 192, AST 68, BNP 1370 , ALBUMIN 3.1. A CHEST XRAY WAS OBTAINED AND REPORTED MODERATE CARDIOMEGALY AND MILD TO MODERATE VASCULAR CONGESTION. TODAY, WE WILL INCREASE LASIX TO 80 MG IV BID AND START HEMOCYTE 2 CAPUSLES DAILY. OTHERWISE, WE WILL CONTINUE WITH CURRENT PLAN OF CARE. WE PLAN TO FOLLOW UP WITH AM LABS AND CHEST XRAY AND CONTINUE TO MONITOR. WE WILL CONTINUE TO RESTRICT FLUIDS TO 1000 ML/DAY. - Past Medical Family Social History Past Med/Fam/Surg Hx: No changes since H&P Allergies: Allergies No Known Allergies Adverse Reaction (Verified 11/17/16 18:52) - Review of Systems ROS: No change since H&P - Vital Signs and I&O's Vital Signs: Temperature 97.4 F Pulse Rate [Apical] 76 Pulse Rate 76 Respiratory Rate 20 Blood Pressure [Right Arm] 97/54 Blood Pressure 106/68 O2 Sat by Pulse Oximetry 100 - Physical Exam Oriented: Normal Eyes: Normal Ear: Normal Nose: Normal Throat: Normal Respiratory: Diminished Cardiovascular: Edema : Normal Auscultation: Bowel Sounds: Normal Palpation: Normal Tenderness: Normal Skin: Normal Musculoskeletal: Normal Psychiatric: Normal Mood Description: Calm Affect: Normal Speech Pattern: Clear, Appropriate - Laboratory and Diagnostics Result Diagrams: 02/05/17 05:26 02/05/17 09:08 Labs: Laboratory WBC 5.1 X10^3/uL (3.6-10.0) 02/05/17 05:26 RBC 4.03 X10^6/uL (3.5-5.4) 02/05/17 05:26 Hgb 9.0 g/dL (12.0-16.0) L 02/05/17 05:26 Hct 28.6 % (36.0-47.0) L 02/05/17 05:26 MCV 70.8 fL (80.0-100.0) L 02/05/17 05:26 MCH 22.3 pg (27.0-34.0) L 02/05/17 05:26 MCHC 31.5 g/dL (33.0-35.0) L 02/05/17 05:26 RDW 17.3 % (11.6-16.5) H 02/05/17 05:26 Plt Count 230 X10^3/uL (150.0-450.0) 02/05/17 05:26 Plt Count Comment Adequate (ADEQUATE) 02/05/17 05:26 MPV 8.5 fL (7.4-11.0) 02/05/17 05:26 Neut % 66.7 % (42.0-75.0) 02/05/17 05:26 Lymph % 18.8 % (21.0-51.0) L 02/05/17 05:26 [place] % 9.0 % (0.0-13.0) 02/05/17 05:26 Eos % 3.7 % (0.9-2.9) H 02/05/17 05:26 Baso % 1.8 % (0.2-1.0) H 02/05/17 05:26 Neut # 3.4 x10^3/uL (2.2-4.8) 02/05/17 05:26 Lymph # 1.0 X10^3/uL (1.3-2.9) L 02/05/17 05:26 [place] # 0.5 x10^3/uL (0.3-0.8) 02/05/17 05:26 Eos # 0.2 x10^3/uL (0.0-0.2) 02/05/17 05:26 Baso # 0.1 X10^3/uL (0.0-0.1) 02/05/17 05:26 Absolute Nucleated RBC 0.0 /100WBC 02/05/17 05:26 Plt Morphology Comment Normal (NORMAL) 02/05/17 05:26 RBC Morphology Abnormal (NORMAL) A 02/05/17 05:26 Hypochromasia 1+ A 02/05/17 05:26 Anisocytosis Slight A 02/03/17 05:29 Microcytosis Slight A 02/03/17 05:29 Sample Site Rbra 02/02/17 00:28 ABG pH 7.490 (7.35-7.45) H 02/02/17 00:28 ABG pCO2 35.0 mmHg (35.0-45.0) 02/02/17 00:28 ABG pO2 41.0 mmHg (80.0-100.0) L* 02/02/17 00:28 ABG HCO3 26.7 mmol/L (22-26) H 02/02/17 00:28 ABG O2 Saturation 81.0 % (90-100) L* 02/02/17 00:28 ABG Base Excess 3.5 mmol/L (-2.0-2.0) H 02/02/17 00:28 Cooper Test Na 02/02/17 00:28 A-a Gradient 143.0 mmHg 02/02/17 00:28 FiO2 32 02/02/17 00:28 Blood Gas Comments Hardik abg well-mtf 02/02/17 00:28 Sodium 141 mmol/L (136-145) 02/05/17 05:26 Corrected Sodium 144 mmol/L (136-145) 02/05/17 05:26 Potassium 3.6 mmol/L (3.5-5.1) 02/05/17 09:08 Chloride 102 mmol/L (98-107) 02/05/17 05:26 Carbon Dioxide 28.9 mmol/L (21-32) 02/05/17 05:26 BUN 14 mg/dL (7-18) 02/05/17 05:26 Creatinine 0.80 mg/dL (0.55-1.02) 02/05/17 05:26 Est GFR (MDRD) Af Amer > 60 (>60) 02/05/17 05:26 Est GFR (MDRD) Non-Af > 60 (>60) 02/05/17 05:26 Glucose 230 mg/dL (65-99) H 02/05/17 05:26 POC Glucose (mg/dL) 225 mg/dL (65-99) H 02/05/17 05:53 Calcium 9.0 mg/dL (8.5-10.1) 02/05/17 05:26 Corrected Calcium 9.7 mg/dL (8.5-10.1) 02/05/17 05:26 Total Bilirubin 1.00 mg/dL (0.2-1.0) 02/05/17 05:26 AST 49 Units/L (15-37) H 02/05/17 05:26 ALT 42 Units/L (12-78) 02/05/17 05:26 Alkaline Phosphatase 82 Units/L (46-116) 02/05/17 05:26 B-Natriuretic Peptide 669 pg/mL (0-79) H* 02/05/17 05:26 Total Protein 6.8 g/dL (6.4-8.2) 02/05/17 05:26 Albumin 3.1 g/dL (3.4-5.0) L 02/05/17 05:26 Globulin 3.7 g/dL (2.5-4.5) 02/05/17 05:26 Albumin/Globulin Ratio 0.8 Ratio (1.1-2.1) L 02/05/17 05:26 Digoxin 0.65 ng/mL (0.9-2) L 02/05/17 05:26 - Plan (1) CHF exacerbation Status: Acute Qualifiers: Congestive heart failure type: systolic Qualified Code(s): I50.23 - Acute on chronic systolic (congestive) heart failure Plan: LASIX 80 MG IV BID, BIPAP, MORPHINE 2MG IV QID PRN, MONITOR LABS AND CHEST XRAY, CONTINUE TO MONITOR (2) Diabetes Status: Chronic Qualifiers: Diabetes mellitus type: type 2 Diabetes mellitus complication status: with unspecified complications Diabetes mellitus radio communication coordinator insulin use: unspecified detention insulin use status Qualified Code(s): E11.8 - Type 2 diabetes mellitus with unspecified complications Plan: LEVEMIR 84 UNITS HS, SLIDING SCALE INSULIN, CONTINUE TO MONITOR (3) GERD (gastroesophageal reflux disease) Status: Chronic Qualifiers: Esophagitis presence: esophagitis presence not specified Qualified Code(s) : K21.9 - Gastro-esophageal reflux disease without esophagitis Plan: CONTINUE ZANTAC, CONTINUE TO MONITOR (4) Hyperlipidemia Status: Chronic Qualifiers: Hyperlipidemia type: mixed hyperlipidemia Qualified Code(s): E78.2 - Mixed hyperlipidemia Plan: CONTINUE CRESTOR, CONTINUE TO MONITOR (5) Depression Status: Chronic Qualifiers: Depression Type: major depressive disorder Major depression recurrence: recurrent Active/Remission status: remission status unspecified Qualified Code(s): F33.9 - Major depressive disorder, recurrent, unspecified Plan: CONTINUE LEXAPRO, CONTINUE TO MONITOR (6) Coronary artery disease Status: Chronic Qualifiers: Coronary Disease-Associated Artery/Lesion type: bypass graft [place] vs. transplanted heart: [place] heart Associated angina: without angina Qualified Code(s): I25.810 - Atherosclerosis of coronary artery bypass graft(s) without angina pectoris Plan: CONTINUE PLAVIX 75MG DAILY, CONTINUE TO MONITOR (7) Atrial fibrillation with controlled ventricular rate Status: Acute Plan: DIGOXIN 0.125MG PO DAILY, CONTINUE TO MONITOR
== END 2017-02-05 10:55 | disposition home or self-care (01) | DRG 292 ==
LOC: ICU 23:07 → OBSVTOIN 02-03 09:00
PROVIDERS: ADMIT Internal Medicine; ATTEND Internal Medicine
DX: I50.23 Acute on chronic systolic (congestive) heart failure (principal); R06.02 Shortness of breath; I51.7 Cardiomegaly; E78.2 Mixed hyperlipidemia; K21.9 Gastro-esophageal reflux disease without esophagitis; R60.0 Localized edema; E11.65 Type 2 diabetes mellitus with hyperglycemia; I25.810 Atherosclerosis of coronary artery bypass graft(s) without angina pectoris; I48.91 Unspecified atrial fibrillation; I10 Essential (primary) hypertension
CPT/HCPCS: 36415; 36600; 71010; 80053; 80069; 80162; 82803; 83880; 84132; 85025; 93005; 94660; 94760; A4222; A4618; A7030; 1956; G0378; J1160; J1815; J1940; J2270

== ENCOUNTER → 2017-02-01 | Outpatient (CLI) | payer OTHER ==
[2017-02-01 14:55] LABS: ALBUMIN 3.1 g/dL (3.4-5.0); BLOOD UREA NITROGEN 19 mg/dL (7-18); CALCIUM 8.8 mg/dL (8.5-10.1); CHLORIDE 101 mmol/L (98-107); COR CA(FOR HYPOALB) 9.5 mg/dL (8.5-10.1); COR NA(FOR HYPERGLY) 141 mmol/L (136-145); CREATININE 0.94 mg/dL (0.55-1.02); PHOSPHORUS 3.4 mg/dL (2.6-4.7); SODIUM 137 mmol/L (136-145); eGFR BLACK RACES > 60 (>60); eGFR NON BLACK RACES > 60 (>60)
== END ==
LOC: LAB 14:12
PROVIDERS: ATTEND Internal Medicine Cardiovascular Disease
DX: E78.2 Mixed hyperlipidemia (principal); I10 Essential (primary) hypertension; I25.10 Atherosclerotic heart disease of native coronary artery without angina pectoris; I50.9 Heart failure, unspecified
CPT/HCPCS: 36415; 80069

== ENCOUNTER → 2017-05-06 | Outpatient (CLI) | payer OTHER ==
--- NOTE | 2017-05-06 12:18 | MG ---
Examination: Bilateral screening mammogram. Clinical history: Routine screening. Technique: Digital CC and MLO views of both breasts were obtained. Computer aided detection analysis was performed and used during the interpretation. Comparison: 02/19/2015, 06/05/2014. Findings: The breasts are extremely dense, reducing the sensitivity of mammography. Scattered benign-appearing calcifications are noted in the breasts bilaterally. A biopsy marking clip is present in the left herminio ast. A skin mole is seen overlying the right breast. No suspicious mass, area of architectural distortion or suspicious cluster of microcalcifications is noted. Impression: 1. No mammographic evidence of malignancy. BI-RADS category 2-benign findings. Recommend routine annual screening mammogram. Diagnostic CAD was utilized and reviewed. * 0 (ZERO) - ASSESSMENT INCOMPLETE; ADDITIONAL IMAGING IS NEEDED. * 0C - ASSESSMENT INCOMPLETE, NEEDS ADDITIONAL IMAGING EVALUATION AND/OR PRIOR MAMMOGRAMS FOR COMPARI SON. * 1/ (ONE) - NEGATIVE. * 2/II (TWO) - BENIGN FINDINGS. * 3/III (THREE) - PROBABLY BENIGN FINDING; SHORT INTERVAL FOLLOW-UP SUGGESTED. * 4/IV (FOUR) - SUSPICIOUS ABNORMALITY; BIOPSY SHOULD BE CONSIDERED. * 5/V - HIGHLY SUSPICIOUS OF MALIGNANCY; BIOPSY SHOULD BE PERFORMED. * 6/IV - KNOWN BIOPSY PROVEN MALIGNANCY-APPROPRIATE ACTION SHOULD BE TAKEN. A NEGATIVE X-RAY REPORT SHOULD NOT DELAY BIOPSY IF A DOMINANT OR CLINICALLY SUSPICIOUS MASS IS PRESENT; 4 TO 8 PERCENT OF CANCERS ARE NOT IDENTIFIED BY X-RAY. A NEGATIVE REPORT MAY REINFORCE THE CLINICAL IMPRESSION. ADENOSIS AND DENSE BREASTS MAY OBSCURE AN UNDERLYING NEOPLASM. Reported By:
== END ==
LOC: RAD 10:26
PROVIDERS: ATTEND Specialist
DX: Z12.31 Encounter for screening mammogram for malignant neoplasm of breast (principal)
CPT/HCPCS: 77067

== ENCOUNTER 2017-08-28 21:24 | Inpatient (IN) | payer OTHER ==
[2017-08-28 22:17] LABS: BASOPHILS # (AUTO) 0.1 X10^3/uL (0.0-0.1); BASOPHILS % (AUTO) 1.2 % (0.2-1.0); EOSINOPHILS # (AUTO) 0.5 x10^3/uL (0.0-0.2); EOSINOPHILS % (AUTO) 3.6 % (0.9-2.9); HEMATOCRIT 34.1 % (36.0-47.0); HEMOGLOBIN 11.5 g/dL (12.0-16.0); LYMPHOCYTES # (AUTO) 3.1 X10^3/uL (1.3-2.9); LYMPHOCYTES % (AUTO) 24.3 % (21.0-51.0); MEAN CORPUSCULAR HEMOGLOBIN 26.3 pg (27.0-34.0); MEAN CORPUSCULAR HGB CONC 33.8 g/dL (33.0-35.0); MEAN CORPUSCULAR VOLUME 77.7 fL (80.0-100.0); MEAN PLATELET VOLUME 7.9 fL (7.4-11.0); MONOCYTES # (AUTO) 1.3 x10^3/uL (0.3-0.8); MONOCYTES % (AUTO) 9.8 % (0.0-13.0); NEUTROPHILS # (AUTO) 7.8 x10^3/uL (2.2-4.8); NEUTROPHILS % (AUTO) 61.1 % (42.0-75.0); PLATELET COUNT 355 X10^3/uL (150.0-450.0); RED BLOOD COUNT 4.38 X10^6/uL (3.5-5.4); RED CELL DISTRIBUTION WIDTH 16.7 % (11.6-16.5); WHITE BLOOD COUNT 12.8 X10^3/uL (3.6-10.0)
--- NOTE | 2017-08-28 22:17 | RAD ---
Chest AP portable Indication: CHF and hypertension Comparison: 02/05/2017 Findings: There is cardiomegaly with AICD in pacemaker leads. There is no pneumothorax. Lungs are hyp erinflated compatible with COPD. No consolidation or large effusion seen. Impression: Cardiomegaly and COPD change, similar to the prior without new acute abnormality. No ignacio re edema. Reported By:
[2017-08-28 22:23] LABS: BLOOD UREA NITROGEN 57 mg/dL (7-18); CALCIUM 9.8 mg/dL (8.5-10.1); CARBON DIOXIDE 31.4 mmol/L (21-32); CHLORIDE 82 mmol/L (98-107); COR NA(FOR HYPERGLY) 133 mmol/L (136-145); CREATININE 2.23 mg/dL (0.55-1.02); SODIUM 127 mmol/L (136-145); eGFR BLACK RACES 28 (>60); eGFR NON BLACK RACES 23 (>60)
[2017-08-28 22:28] LABS: ALANINE AMINOTRANSFERASE 23 Units/L (12-78); ALKALINE PHOSPHATASE 75 Units/L (46-116); TOTAL PROTEIN 8.9 g/dL (6.4-8.2)
[2017-08-28 22:45] LABS: ASPARTATE AMINO TRANSFERASE 22 Units/L (15-37)
[2017-08-28 23:14] LABS: BILIRUBIN,URINE NEGATIVE (NEGATIVE); BLOOD/HEMOGLOBIN,URINE NEGATIVE (NEGATIVE); GLUCOSE, URINE 4+ (NEGATIVE); KETONES,URINE NEGATIVE (NEGATIVE); LEUKOCYTE ESTERASE ,URINE 1+ (NEGATIVE); NITRITES,URINE NEGATIVE (NEGATIVE); PROTEIN,URINE NEGATIVE (NEGATIVE); UROBILINOGEN,URINE NORMAL (NORMAL)
[2017-08-28] MEDS: NS 1000 ML 1,000 ML IV SCH (23:39)
[2017-08-28 23:40] LABS: APPEARANCE,URINE CLEAR (CLEAR); BACTERIA,URINE NEGATIVE /HPF (NEGATIVE); COLOR,URINE YELLOW (YELLOW); RBC,URINE 0-2 /HPF (NONE SEEN); SQUAMOUS EPITHELIAL CELL,UR FEW /HPF (NEGATIVE)
[2017-08-28] MEDS: OTBSDRIP XX SCH (23:54)
[2017-08-29 00:01] VITALS: BMI 23.2
[2017-08-29] MEDS: OTBSDRIP XX SCH ×25 (00:45→22:25)
[2017-08-29] MEDS ORDERED: DESYREL PO ONE (00:52)
[2017-08-29] MEDS ORDERED: KLONOPIN TAB 1 MG PO ONE (00:52)
[2017-08-29] MEDS ORDERED: K-DUR TAB 20 MEQ PO ONE (00:54)
[2017-08-29] MEDS ORDERED: LEVEMIR SC ONE (00:55)
[2017-08-29 06:15] LABS: BASOPHILS # (AUTO) 0.1 X10^3/uL (0.0-0.1); BASOPHILS % (AUTO) 0.7 % (0.2-1.0); EOSINOPHILS # (AUTO) 0.6 x10^3/uL (0.0-0.2); EOSINOPHILS % (AUTO) 5.9 % (0.9-2.9); HEMATOCRIT 31.9 % (36.0-47.0); HEMOGLOBIN 11.1 g/dL (12.0-16.0); LYMPHOCYTES # (AUTO) 2.2 X10^3/uL (1.3-2.9); LYMPHOCYTES % (AUTO) 20.4 % (21.0-51.0); MEAN CORPUSCULAR HEMOGLOBIN 26.5 pg (27.0-34.0); MEAN CORPUSCULAR HGB CONC 34.7 g/dL (33.0-35.0); MEAN CORPUSCULAR VOLUME 76.2 fL (80.0-100.0); MEAN PLATELET VOLUME 8.1 fL (7.4-11.0); MONOCYTES # (AUTO) 1.1 x10^3/uL (0.3-0.8); MONOCYTES % (AUTO) 10.5 % (0.0-13.0); NEUTROPHILS # (AUTO) 6.8 x10^3/uL (2.2-4.8); NEUTROPHILS % (AUTO) 62.5 % (42.0-75.0); PLATELET COUNT 296 X10^3/uL (150.0-450.0); RED BLOOD COUNT 4.19 X10^6/uL (3.5-5.4); RED CELL DISTRIBUTION WIDTH 16.6 % (11.6-16.5); WHITE BLOOD COUNT 10.8 X10^3/uL (3.6-10.0)
[2017-08-29 06:28] LABS: ALANINE AMINOTRANSFERASE 19 Units/L (12-78); ALBUMIN 3.7 g/dL (3.4-5.0); ALKALINE PHOSPHATASE 65 Units/L (46-116); ASPARTATE AMINO TRANSFERASE 17 Units/L (15-37); BLOOD UREA NITROGEN 60 mg/dL (7-18); CALCIUM 9.1 mg/dL (8.5-10.1); CARBON DIOXIDE 34.4 mmol/L (21-32); CHLORIDE 87 mmol/L (98-107); COR NA(FOR HYPERGLY) 135 mmol/L (136-145); CREATININE 1.59 mg/dL (0.55-1.02); SODIUM 131 mmol/L (136-145); TOTAL PROTEIN 8.3 g/dL (6.4-8.2); eGFR BLACK RACES 42 (>60); eGFR NON BLACK RACES 34 (>60)
[2017-08-29] MEDS: NS 1000 ML 1,000 ML IV SCH (09:41)
[2017-08-29] MEDS ORDERED: NS 1000 ML 1,000 ML IV ONE (11:26)
[2017-08-29 12:43] LABS: BILIRUBIN,URINE NEGATIVE (NEGATIVE); BLOOD/HEMOGLOBIN,URINE NEGATIVE (NEGATIVE); GLUCOSE, URINE 4+ (NEGATIVE); KETONES,URINE NEGATIVE (NEGATIVE); LEUKOCYTE ESTERASE ,URINE NEGATIVE (NEGATIVE); NITRITES,URINE NEGATIVE (NEGATIVE); PROTEIN,URINE NEGATIVE (NEGATIVE); UROBILINOGEN,URINE NORMAL (NORMAL)
[2017-08-29 12:54] LABS: APPEARANCE,URINE CLEAR (CLEAR); COLOR,URINE YELLOW (YELLOW)
[2017-08-29] MEDS: NS + KCL 20 MEQ/L 1,000 ML IV SCH ×2 (14:00→21:25)
[2017-08-29] MEDS ORDERED: ZANTAC PO PRN (16:05)
[2017-08-29] MEDS ORDERED: ESOMEPRAZOLE MAGNESIUM 40 MG PO SCH (16:15)
[2017-08-29] MEDS ORDERED: PATIENT'S HOME MEDICATION (Glipizide [Glipizide 10 Mg] 10 MG) PO SCH (16:15)
[2017-08-29] MEDS ORDERED: DESLORATADINE 5 MG PO SCH (16:15)
[2017-08-29] MEDS ORDERED: LEXAPRO ONE (17:30)
[2017-08-29] MEDS ORDERED: GLUCOTROL ONE (17:30)
[2017-08-29] MEDS: LANOXIN PO SCH (17:32)
[2017-08-29] MEDS: LEXAPRO PO SCH (17:32)
[2017-08-29] MEDS: PLAVIX PO SCH (17:35)
[2017-08-29] MEDS: VITAMIN E PO SCH (17:55)
--- NOTE | 2017-08-29 20:20 | DR.H&P ---
H&P - History & Physical for Day of: H&P Date: 08/28/17 - Chief Complaint Chief Complaint: weakness, hyperglycemia, short of breath - Allergies Allergies/Adverse Reactions: Allergies Allergy/AdvReac Type Severity Reaction Status Date / Time No Known Allergies AdvReac Verified 11/17/16 18:52 - History of Present Illness History of Present Illness: is a 66 year old patient of ours. She is a direct admit from our office due to failed out-patient treatment for severe hyperglycemia, dehydration, hypotension, and congestive heart failure. On arrival, vitals were 98.2, 94, 22, 100 NC, 100/59. Labs were obtained. Abnormal lab values include the following: WBC 12.8, HGB 11.5, Hct 34.1, Sodium 127, Potassium 3.0, Chloride 82, BUN 57, Creatinine 2.23, GFR Af Amer 28, Non Af 23, Glucose 355, Total Protein 8.9, Globulin 4.9, Albumin/Globulin Ratio 0.8. Urinalysis revealed: Clean Catch Yellow, Glucose 4+, Leukocyte Esterase 1+, RBC 0-2, WBC 3-5. Glucose 23:42 354, 00:43 350, 01:46 341, 02:47 329, 03:48 294. Chest Xray revealed: Cardiomegaly and COPD change, similar to the prior without new acute abnormality. No severe edema. EKG revealed: Rate 95 Sinus Rhythm, Probable Lft Atrial Enlargement, LVH With secondary repolarization abnormality, borderline prolonged QT Interval. 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 Patient started on Hum R Insulin drip per protocol with One Touch Blood Sugars Q 1 Hour and titrate dose. Labs reveal blood sugar of 354 with elevated WBC at 12.8 Low Sodium of 127, BUN of 57 and Creatinine of 2.23. Patient is being gently hydrate with NS @ 75mls/Hr. Chest X ray obtained reports Cardiomegaly and COPD. We will continue to monitor Blood Sugar and manage hyperglycemia. We will follow up with chest X-ray and labs in the am. - Past Medical History Past Medical History: Anemia, CHF, Depression, Diabetes, Dyslipidemia, GERD, PUD Additional Medical History: CATARACTS, RETINAL DETACHMENT, HIATAL HERNIA - Past Surgical History Surgical History: Cholecystectomy, Hysterectomy, Tonsillectomy Additional Surgical History: BYPASS X 4 - Family History Family Medical History: Diabetes Mellitus, [place], Hypertension - Social History Does patient currently use any type of tobacco product: No Have you used tobacco products in the last 12 months: No Type of Tobacco Use: None Does any household member use tobacco: No Alcohol Use: Rarely - Medications Home Medications: Clonazepam [Klonopin Tab 1 mg] 2 mg PO HS 08/28/17 [History Confirmed 08/28/17] Desloratadine 5 mg PO DAILY 08/28/17 [History Confirmed 08/28/17] Ergocalciferol [Vitamin D (1.25MG)] 50,000 unit PO WEEKLY 08/28/17 [History Confirmed 08/28/17] Glipizide [Glipizide 10 mg] 10 mg PO BID 08/28/17 [History Confirmed 08/28/17] Insulin Detemir (Levemir) [LEVEMIR INSULIN *] 45 units SC DAILY 08/28/17 [ History Confirmed 08/28/17] Insulin Detemir (Levemir) [LEVEMIR INSULIN *] 65 units SC HS 08/28/17 [History Confirmed 08/28/17] Metoprolol Succinate Ext Rel [TOPROL XL 25 MG *] 25 mg PO DAILY 08/28/17 [ History Confirmed 08/28/17] Spironolact/Hydrochlorothiazid [Spironolactone-Hctz 25-25 Tab] 1 tab PO DAILY [History Confirmed 08/28/17] Trazodone HCl [TRAZODONE 50 MG (DESYREL) *] 50 mg PO HS 08/28/17 [History Confirmed 08/28/17] Vitamin E 400 iu PO DAILY 08/28/17 [History Confirmed 08/28/17] - Review of Systems Constitutional: Weakness, Malaise Eyes: No Symptoms Reported ENT: No Symptoms Reported Respiratory: Shortness of Breath, SOB with Excertion. denies: Cough Cardiovascular: Edema Gastrointestinal: Nausea, Vomiting Genitourinary: No Symptoms Reported Musculoskeletal: No Symptoms Reported Skin: No Symptoms Reported Neurological: Weakness - Physical Exam Vital Signs: Temperature 97.6 F Pulse Rate [Radial] 86 Pulse Rate 74 Respiratory Rate 30 Blood Pressure [Left Arm] 117/58 Blood Pressure [Right Arm] 97/54 Blood Pressure 97/54 O2 Sat by Pulse Oximetry 100 Oriented: Normal Eyes: Normal Ear: Normal Nose: Normal Throat: Normal Respiratory: Diminished Throughout Cardiovascular: Edema. negative: S3, S4, Murmur : Normal Auscultation: Bowel Sounds: Normal Palpation: Normal Tenderness: Normal Skin: Normal Musculoskeletal: Normal Psychiatric: Normal Mood Description: Calm Affect: Normal Speech Pattern: Clear - Assessment/Plan (1) Hyperglycemia Status: Acute Plan: insulin drip, monitor otbs (2) Dehydration Status: Acute Plan: iv hydration, continue to monitor (3) Hypotension Qualifiers: Hypotension type: unspecified hypotension type Qualified Code(s): I95.9 - Hypotension, unspecified Status: Acute Plan: iv hydration, continue to monitor
[2017-08-29] MEDS: NIASPAN ER TAB 500 MG PO SCH (21:25)
[2017-08-29] MEDS: CRESTOR TAB 10 MG PO SCH (21:25)
[2017-08-29] MEDS: SNACK - Diabetic Appropriate PO SCH (21:25)
[2017-08-29] MEDS: ASPIRIN EC 81 MG PO SCH (21:25)
[2017-08-29] MEDS: DESYREL PO SCH (21:26)
[2017-08-29] MEDS: GLUCOTROL PO SCH (21:26)
[2017-08-29] MEDS: KLONOPIN TAB 1 MG PO SCH (21:26)
[2017-08-30] MEDS: OTBSDRIP XX SCH ×10 (00:10→09:25)
[2017-08-30] MEDS: NS + KCL 20 MEQ/L 1,000 ML IV SCH ×3 (04:17→19:03)
[2017-08-30 05:47] LABS: ALANINE AMINOTRANSFERASE 15 Units/L (12-78); ALBUMIN 2.9 g/dL (3.4-5.0); ALKALINE PHOSPHATASE 46 Units/L (46-116); ASPARTATE AMINO TRANSFERASE 18 Units/L (15-37); BLOOD UREA NITROGEN 32 mg/dL (7-18); CALCIUM 8.2 mg/dL (8.5-10.1); CARBON DIOXIDE 30.4 mmol/L (21-32); CHLORIDE 103 mmol/L (98-107); COR CA(FOR HYPOALB) 9.1 mg/dL (8.5-10.1); COR NA(FOR HYPERGLY) 141 mmol/L (136-145); CREATININE 1.01 mg/dL (0.55-1.02); DIGOXIN 0.99 ng/mL (0.9-2); SODIUM 139 mmol/L (136-145); TOTAL PROTEIN 6.7 g/dL (6.4-8.2); eGFR BLACK RACES > 60 (>60); eGFR NON BLACK RACES 58 (>60)
[2017-08-30 05:56] LABS: BASOPHILS # (AUTO) 0.1 X10^3/uL (0.0-0.1); BASOPHILS % (AUTO) 1.4 % (0.2-1.0); EOSINOPHILS # (AUTO) 0.6 x10^3/uL (0.0-0.2); EOSINOPHILS % (AUTO) 9.4 % (0.9-2.9); HEMATOCRIT 27.7 % (36.0-47.0); HEMOGLOBIN 9.4 g/dL (12.0-16.0); LYMPHOCYTES # (AUTO) 1.4 X10^3/uL (1.3-2.9); LYMPHOCYTES % (AUTO) 23.1 % (21.0-51.0); MEAN CORPUSCULAR HEMOGLOBIN 26.8 pg (27.0-34.0); MEAN CORPUSCULAR HGB CONC 33.8 g/dL (33.0-35.0); MEAN CORPUSCULAR VOLUME 79.2 fL (80.0-100.0); MEAN PLATELET VOLUME 8.1 fL (7.4-11.0); MONOCYTES # (AUTO) 0.7 x10^3/uL (0.3-0.8); MONOCYTES % (AUTO) 11.7 % (0.0-13.0); NEUTROPHILS # (AUTO) 3.3 x10^3/uL (2.2-4.8); NEUTROPHILS % (AUTO) 54.4 % (42.0-75.0); PLATELET COUNT 237 X10^3/uL (150.0-450.0); RED BLOOD COUNT 3.49 X10^6/uL (3.5-5.4); RED CELL DISTRIBUTION WIDTH 16.9 % (11.6-16.5); WHITE BLOOD COUNT 6.1 X10^3/uL (3.6-10.0)
[2017-08-30] MEDS ORDERED: VITAMIN D (1.25MG) PO SCH (09:00)
[2017-08-30] MEDS ORDERED: LEXAPRO ONE (09:11)
[2017-08-30] MEDS: LEXAPRO PO SCH (09:14)
[2017-08-30] MEDS: GLUCOTROL PO SCH ×2 (09:14→21:14)
[2017-08-30] MEDS: PLAVIX PO SCH (09:14)
[2017-08-30] MEDS: HYDROCHLOROTHIAZIDE 25 MG TAB PO SCH (09:15)
[2017-08-30] MEDS: ALDACTONE TAB 25 MG PO SCH (09:15)
[2017-08-30] MEDS: NexIUM PO SCH (09:15)
[2017-08-30] MEDS: CLARITIN PO SCH (09:15)
[2017-08-30] MEDS: LANOXIN PO SCH (09:16)
[2017-08-30] MEDS: VITAMIN E PO SCH (09:59)
[2017-08-30] MEDS: NORCO 10/325 TAB PO PRN ×2 (10:09→21:35)
--- NOTE | 2017-08-30 10:14 | RAD ---
HISTORY: Severe hyperglycemia, dehydration, shortness of breath Study: Single view chest Comparison: 08/28/2017 Findings: AICD and chronic sternotomy changes are noted. No infiltrate, effusion or pneumothorax identified. St able cardiomegaly. There are chronic degenerative changes of the bony thorax. IMPRESSION: 1. Cardiomegaly without acute abnormality. Reported By:
[2017-08-30] MEDS: SNACK - Diabetic Appropriate PO SCH (20:01)
--- NOTE | 2017-08-30 20:28 | PCM.PROG ---
Progress Note - Progress Note for Day of Date: 08/29/17 - Subjective Subjective: IS BEING TREATED FOR HYPERGLYCEMIA AND DEHYDRATION. TODAY, SHE IS LYING IN BED WITH HER EYES CLOSED ON MORNING ROUNDS. SHE IS DROWSY AND DIFFICULT TO AROUSE. ON EXAMINATION, HEART IS REGULAR IN RATE AND RHYTHM. BILATERAL LUNGS ARE NOTED WITH DIMINISHED LUNG SOUNDS THROUGHOUT. ABDOMEN IS ROUND, SOFT, AND NON-TENDER WITH NORMAL BOWEL SOUNDS NOTED IN ALL QUADRANTS. LOWER EXTREMITIES CONTINUE WITH TRACE EDEMA. HER VITALS TODAY ARE 97.6-79-20-95% -87/53. ABNORMAL LAB VALUES INCLUDE THE FOLLOWING: WBC 10.8, HGB 11.1, HCT 31.9 , SODIUM 131, POTASSIUM 2.4, CHLORIDE 87, CARBON DIOXIDE 34.4, BUN 60, CREATININE 1.59, GLUCOSE 250, TOTAL PROTEIN 8.3. TODAY, WE WILL BOLUS HER WITH NORMAL SALINE 500ML, THEN START NORMAL SALINE WITH 20MEQ KCL AT 150ML/HR. WE WILL HOLD HER LASIX AND METOPROLOL. OTHERWISE, WE WILL CONTINUE WITH INSULIN DRIP AND CONTINUE TO MONITOR PATIENT. WE WILL FOLLOW UP WITH AM LABS AND CHEST XRAY. - Past Medical Family Social History Past Med/Fam/Surg Hx: No changes since H&P Allergies: Allergies No Known Allergies Adverse Reaction (Verified 11/17/16 18:52) - Review of Systems ROS: No change since H&P - Vital Signs and I&O's Vital Signs: Temperature 98.2 F Pulse Rate [Radial] 79 Pulse Rate 68 Respiratory Rate 21 Blood Pressure [Left Arm] 98/56 Blood Pressure [Right Arm] 110/55 Blood Pressure 97/54 O2 Sat by Pulse Oximetry 99 Intake and Output: Intake & Output 08/28/17 08/29/17 08/30/17 08/31/17 11:59 11:59 11:59 11:59 Intake Total 1159 3238 1902 Output Total 1450 1800 Balance 1159 1788 102 - Physical Exam Oriented: Normal Eyes: Normal Ear: Normal Nose: Normal Throat: Normal Respiratory: Diminished Cardiovascular: Edema. negative: S3, S4, Murmur : Normal Auscultation: Bowel Sounds: Normal Palpation: Normal Tenderness: Normal Skin: Normal Musculoskeletal: Normal Psychiatric: Normal Mood Description: Calm Affect: Normal Speech Pattern: Clear, Appropriate - Laboratory and Diagnostics Result Diagrams: 08/30/17 05:17 08/30/17 05:17 Labs: Laboratory WBC 6.1 X10^3/uL (3.6-10.0) 08/30/17 05:17 RBC 3.49 X10^6/uL (3.5-5.4) L 08/30/17 05:17 Hgb 9.4 g/dL (12.0-16.0) L 08/30/17 05:17 Hct 27.7 % (36.0-47.0) L 08/30/17 05:17 MCV 79.2 fL (80.0-100.0) L 08/30/17 05:17 MCH 26.8 pg (27.0-34.0) L 08/30/17 05:17 MCHC 33.8 g/dL (33.0-35.0) 08/30/17 05:17 RDW 16.9 % (11.6-16.5) H 08/30/17 05:17 Plt Count 237 X10^3/uL (150.0-450.0) 08/30/17 05:17 MPV 8.1 fL (7.4-11.0) 08/30/17 05:17 Neut % (Auto) 54.4 % (42.0-75.0) 08/30/17 05:17 Lymph % (Auto) 23.1 % (21.0-51.0) 08/30/17 05:17 [place] % (Auto) 11.7 % (0.0-13.0) 08/30/17 05:17 Eos % (Auto) 9.4 % (0.9-2.9) H 08/30/17 05:17 Baso % (Auto) 1.4 % (0.2-1.0) H 08/30/17 05:17 Neut # (Auto) 3.3 x10^3/uL (2.2-4.8) 08/30/17 05:17 Lymph # (Auto) 1.4 X10^3/uL (1.3-2.9) 08/30/17 05:17 [place] # (Auto) 0.7 x10^3/uL (0.3-0.8) 08/30/17 05:17 Eos # (Auto) 0.6 x10^3/uL (0.0-0.2) H 08/30/17 05:17 Baso # (Auto) 0.1 X10^3/uL (0.0-0.1) 08/30/17 05:17 Absolute Nucleated RBC 0.1 /100WBC 08/30/17 05:17 Sodium 139 mmol/L (136-145) 08/30/17 05:17 Corrected Sodium 141 mmol/L (136-145) 08/30/17 05:17 Potassium 3.3 mmol/L (3.5-5.1) L 08/30/17 05:17 Chloride 103 mmol/L (98-107) 08/30/17 05:17 Carbon Dioxide 30.4 mmol/L (21-32) 08/30/17 05:17 BUN 32 mg/dL (7-18) H 08/30/17 05:17 Creatinine 1.01 mg/dL (0.55-1.02) 08/30/17 05:17 Est GFR (MDRD) Af Amer > 60 (>60) 08/30/17 05:17 Est GFR (MDRD) Non-Af 58 (>60) L 08/30/17 05:17 Glucose 182 mg/dL (65-99) H 08/30/17 05:17 POC Glucose (mg/dL) 254 mg/dL (65-99) H 08/30/17 19:08 Calcium 8.2 mg/dL (8.5-10.1) L 08/30/17 05:17 Corrected Calcium 9.1 mg/dL (8.5-10.1) 08/30/17 05:17 Magnesium 2.3 mg/dL (1.7-2.9) 08/29/17 05:52 Total Bilirubin 0.40 mg/dL (0.2-1.0) 08/30/17 05:17 AST 18 Units/L (15-37) 08/30/17 05:17 ALT 15 Units/L (12-78) 08/30/17 05:17 Alkaline Phosphatase 46 Units/L (46-116) 08/30/17 05:17 B-Natriuretic Peptide 78.0 pg/mL (0-79) 08/28/17 22:03 Total Protein 6.7 g/dL (6.4-8.2) 05/07/18 05:17 Albumin 2.9 g/dL (3.4-5.0) L 08/30/17 05:17 Globulin 3.8 g/dL (2.5-4.5) 08/30/17 05:17 Albumin/Globulin Ratio 0.8 Ratio (1.1-2.1) L 08/30/17 05:17 Specimen Type Catherized urine 08/29/17 12:20 Urine Color Yellow (YELLOW) 08/29/17 12:20 Urine Appearance Clear (CLEAR) 08/29/17 12:20 Urine pH 6.0 (5.0 - 8.0) 08/29/17 12:20 Ur Specific [place] 1.010 (1.000-1.030) 08/29/17 12:20 Urine Protein Negative (NEGATIVE) 08/29/17 12:20 Urine Glucose (UA) 4+ (NEGATIVE) 08/29/17 12:20 Urine Ketones Negative (NEGATIVE) 08/29/17 12:20 Urine Occult Blood Negative (NEGATIVE) 08/29/17 12:20 Urine Nitrite Negative (NEGATIVE) 08/29/17 12:20 Urine Bilirubin Negative (NEGATIVE) 08/29/17 12:20 Urine Acetone Negative (NEGATIVE) 08/28/17 22:56 Urine Urobilinogen Normal (NORMAL) 08/29/17 12:20 Ur Leukocyte Esterase Negative (NEGATIVE) 08/29/17 12:20 Urine RBC 0-2 /HPF (NONE SEEN) 08/28/17 22:56 Urine WBC 3-5 /HPF (NONE SEEN) 08/28/17 22:56 Ur Squamous Epith Cells Few /HPF (NEGATIVE) 08/28/17 22:56 Urine Bacteria Negative /HPF (NEGATIVE) 08/28/17 22:56 Ur Culture Indicated? No/not indicated 08/28/17 22:56 Digoxin 0.99 ng/mL (0.9-2) 08/30/17 05:17 - Plan (1) Hyperglycemia Status: Acute Plan: insulin drip, monitor otbs (2) Dehydration Status: Acute Plan: iv hydration, continue to monitor (3) Hypotension Status: Acute Qualifiers: Hypotension type: unspecified hypotension type Qualified Code(s): I95.9 - Hypotension, unspecified Plan: iv hydration, continue to monitor
[2017-08-30] MEDS: ASPIRIN EC 81 MG PO SCH (21:09)
[2017-08-30] MEDS: CRESTOR TAB 10 MG PO SCH (21:12)
[2017-08-30] MEDS: NIASPAN ER TAB 500 MG PO SCH (21:13)
[2017-08-30] MEDS: KLONOPIN TAB 1 MG PO SCH (21:14)
[2017-08-30] MEDS: DESYREL PO SCH (21:16)
[2017-08-31] MEDS: DESYREL PO SCH (00:18)
[2017-08-31] MEDS: NS + KCL 20 MEQ/L 1,000 ML IV SCH ×4 (01:12→11:11)
[2017-08-31 06:07] LABS: BASOPHILS # (AUTO) 0.1 X10^3/uL (0.0-0.1); BASOPHILS % (AUTO) 1.5 % (0.2-1.0); EOSINOPHILS # (AUTO) 0.4 x10^3/uL (0.0-0.2); EOSINOPHILS % (AUTO) 7.7 % (0.9-2.9); HEMATOCRIT 29.3 % (36.0-47.0); HEMOGLOBIN 9.7 g/dL (12.0-16.0); LYMPHOCYTES # (AUTO) 1.6 X10^3/uL (1.3-2.9); LYMPHOCYTES % (AUTO) 27.1 % (21.0-51.0); MEAN CORPUSCULAR HEMOGLOBIN 26.3 pg (27.0-34.0); MEAN CORPUSCULAR HGB CONC 33.1 g/dL (33.0-35.0); MEAN CORPUSCULAR VOLUME 79.5 fL (80.0-100.0); MEAN PLATELET VOLUME 8.3 fL (7.4-11.0); MONOCYTES # (AUTO) 0.6 x10^3/uL (0.3-0.8); MONOCYTES % (AUTO) 10.4 % (0.0-13.0); NEUTROPHILS # (AUTO) 3.1 x10^3/uL (2.2-4.8); NEUTROPHILS % (AUTO) 53.3 % (42.0-75.0); PLATELET COUNT 258 X10^3/uL (150.0-450.0); RED BLOOD COUNT 3.69 X10^6/uL (3.5-5.4); RED CELL DISTRIBUTION WIDTH 16.8 % (11.6-16.5); WHITE BLOOD COUNT 5.8 X10^3/uL (3.6-10.0)
[2017-08-31 06:32] LABS: ALANINE AMINOTRANSFERASE 16 Units/L (12-78); ALBUMIN 3.1 g/dL (3.4-5.0); ALKALINE PHOSPHATASE 44 Units/L (46-116); ASPARTATE AMINO TRANSFERASE 19 Units/L (15-37); BLOOD UREA NITROGEN 15 mg/dL (7-18); CALCIUM 8.4 mg/dL (8.5-10.1); CARBON DIOXIDE 26.7 mmol/L (21-32); CHLORIDE 103 mmol/L (98-107); COR CA(FOR HYPOALB) 9.1 mg/dL (8.5-10.1); COR NA(FOR HYPERGLY) 139 mmol/L (136-145); CREATININE 0.87 mg/dL (0.55-1.02); SODIUM 137 mmol/L (136-145); TOTAL PROTEIN 7.1 g/dL (6.4-8.2); eGFR BLACK RACES > 60 (>60); eGFR NON BLACK RACES > 60 (>60)
[2017-08-31] MEDS ORDERED: LEXAPRO ONE (09:46)
[2017-08-31] MEDS: ALDACTONE TAB 25 MG PO SCH (09:59)
[2017-08-31] MEDS: GLUCOTROL PO SCH (09:59)
[2017-08-31] MEDS: HYDROCHLOROTHIAZIDE 25 MG TAB PO SCH (09:59)
[2017-08-31] MEDS: CLARITIN PO SCH (09:59)
[2017-08-31] MEDS: LANOXIN PO SCH (10:00)
[2017-08-31] MEDS: LEXAPRO PO SCH (10:00)
[2017-08-31] MEDS: PLAVIX PO SCH (10:00)
[2017-08-31] MEDS: VITAMIN E PO SCH (10:00)
[2017-08-31] MEDS: NexIUM PO SCH (10:00)
[2017-08-31 10:27] VITALS: BP 94/55
--- NOTE | 2017-08-31 10:53 | PCM.PROG ---
Progress Note - Progress Note for Day of Date: 08/30/17 - Subjective Subjective: IS BEING TREATED FOR HYPERGLYCEMIA AND DEHYDRATION. TODAY, SHE IS ALERT AND ORIENTED, SITTING UP IN CHAIR ON MORNING ROUNDS. SHE COMPLAINS OF GENERALIZED WEAKNESS. ON EXAMINATION, HEART IS REGULAR IN RATE AND RHYTHM. BILATERAL LUNGS ARE NOTED WITH DIMINISHED LUNG SOUNDS THROUGHOUT. ABDOMEN IS ROUND, SOFT, AND NON-TENDER WITH NORMAL BOWEL SOUNDS NOTED IN ALL QUADRANTS. LOWER EXTREMITIES CONTINUE WITH TRACE EDEMA. HER VITALS TODAY ARE 97.2-72-12-100 %-99/51. ABNORMAL LAB VALUES INCLUDE THE FOLLOWING: RBC 3.49, HGB 9.4, HCT 27.7 , POTASSIUM 3.3, BUN 32, GLUCOSE 182, CALCIUM 8.2, ALBUMIN 2.9. A CHEST XRAY WAS OBTAINED TODAY AND REVEALED CARDIOMEGALY WITHOUT CONGESTIVE HEART FAILURE. HER BLOOD GLUCOSE LEVELS HAVE REMAINED IN THE 190s-200s. TODAY, WE WILL CONTINUE WITH CURRENT PLAN OF CARE. WE WILL FOLLOW UP WITH AM LABS AND CHEST XRAY AND CONTINUE TO MONITOR PATIENT. - Past Medical Family Social History Past Med/Fam/Surg Hx: No changes since H&P Allergies: Allergies No Known Allergies Adverse Reaction (Verified 11/17/16 18:52) - Review of Systems ROS: No change since H&P - Vital Signs and I&O's Vital Signs: Temperature 97.4 F Pulse Rate [Radial] 60 Pulse Rate 64 Respiratory Rate 22 Blood Pressure [Left Arm] 98/56 Blood Pressure [Right Arm] 94/55 Blood Pressure 97/54 O2 Sat by Pulse Oximetry 100 Intake and Output: Intake & Output 08/28/17 08/29/17 08/30/17 08/31/17 11:59 11:59 11:59 11:59 Intake Total 1159 3238 4691 Output Total 1450 3450 Balance 1159 1788 1241 - Physical Exam Oriented: Normal Eyes: Normal Ear: Normal Nose: Normal Throat: Normal Respiratory: Diminished Cardiovascular: Edema. negative: S3, S4, Murmur : Normal Auscultation: Bowel Sounds: Normal Palpation: Normal Tenderness: Normal Skin: Normal Musculoskeletal: Normal Psychiatric: Normal Mood Description: Calm Affect: Normal Speech Pattern: Clear, Appropriate - Laboratory and Diagnostics Result Diagrams: 08/31/17 04:47 08/31/17 04:47 Labs: Laboratory WBC 5.8 X10^3/uL (3.6-10.0) 08/31/17 04:47 RBC 3.69 X10^6/uL (3.5-5.4) 08/31/17 04:47 Hgb 9.7 g/dL (12.0-16.0) L 08/31/17 04:47 Hct 29.3 % (36.0-47.0) L 08/31/17 04:47 MCV 79.5 fL (80.0-100.0) L 08/31/17 04:47 MCH 26.3 pg (27.0-34.0) L 08/31/17 04:47 MCHC 33.1 g/dL (33.0-35.0) 08/31/17 04:47 RDW 16.8 % (11.6-16.5) H 08/31/17 04:47 Plt Count 258 X10^3/uL (150.0-450.0) 08/31/17 04:47 MPV 8.3 fL (7.4-11.0) 08/31/17 04:47 Neut % (Auto) 53.3 % (42.0-75.0) 08/31/17 04:47 Lymph % (Auto) 27.1 % (21.0-51.0) 08/31/17 04:47 [place] % (Auto) 10.4 % (0.0-13.0) 08/31/17 04:47 Eos % (Auto) 7.7 % (0.9-2.9) H 08/31/17 04:47 Baso % (Auto) 1.5 % (0.2-1.0) H 08/31/17 04:47 Neut # (Auto) 3.1 x10^3/uL (2.2-4.8) 08/31/17 04:47 Lymph # (Auto) 1.6 X10^3/uL (1.3-2.9) 08/31/17 04:47 [place] # (Auto) 0.6 x10^3/uL (0.3-0.8) 08/31/17 04:47 Eos # (Auto) 0.4 x10^3/uL (0.0-0.2) H 08/31/17 04:47 Baso # (Auto) 0.1 X10^3/uL (0.0-0.1) 08/31/17 04:47 Absolute Nucleated RBC 0.1 /100WBC 08/31/17 04:47 Sodium 137 mmol/L (136-145) 08/31/17 04:47 Corrected Sodium 139 mmol/L (136-145) 08/31/17 04:47 Potassium 4.0 mmol/L (3.5-5.1) 08/31/17 04:47 Chloride 103 mmol/L (98-107) 08/31/17 04:47 Carbon Dioxide 26.7 mmol/L (21-32) 08/31/17 04:47 BUN 15 mg/dL (7-18) 08/31/17 04:47 Creatinine 0.87 mg/dL (0.55-1.02) 08/31/17 04:47 Est GFR (MDRD) Af Amer > 60 (>60) 08/31/17 04:47 Est GFR (MDRD) Non-Af > 60 (>60) 08/31/17 04:47 Glucose 176 mg/dL (65-99) H 08/31/17 04:47 POC Glucose (mg/dL) 199 mg/dL (65-99) H 08/31/17 07:14 Calcium 8.4 mg/dL (8.5-10.1) L 08/31/17 04:47 Corrected Calcium 9.1 mg/dL (8.5-10.1) 08/31/17 04:47 Magnesium 2.3 mg/dL (1.7-2.9) 08/29/17 05:52 Total Bilirubin 0.30 mg/dL (0.2-1.0) 08/31/17 04:47 AST 19 Units/L (15-37) 08/31/17 04:47 ALT 16 Units/L (12-78) 08/31/17 04:47 Alkaline Phosphatase 44 Units/L (46-116) L 08/31/17 04:47 B-Natriuretic Peptide 78.0 pg/mL (0-79) 08/28/17 22:03 Total Protein 7.1 g/dL (6.4-8.2) 08/31/17 04:47 Albumin 3.1 g/dL (3.4-5.0) L 08/31/17 04:47 Globulin 4.0 g/dL (2.5-4.5) 08/31/17 04:47 Albumin/Globulin Ratio 0.8 Ratio (1.1-2.1) L 08/31/17 04:47 Specimen Type Catherized urine 08/29/17 12:20 Urine Color Yellow (YELLOW) 08/29/17 12:20 Urine Appearance Clear (CLEAR) 08/29/17 12:20 Urine pH 6.0 (5.0 - 8.0) 08/29/17 12:20 Ur Specific [place] 1.010 (1.000-1.030) 08/29/17 12:20 Urine Protein Negative (NEGATIVE) 08/29/17 12:20 Urine Glucose (UA) 4+ (NEGATIVE) 08/29/17 12:20 Urine Ketones Negative (NEGATIVE) 08/29/17 12:20 Urine Occult Blood Negative (NEGATIVE) 08/29/17 12:20 Urine Nitrite Negative (NEGATIVE) 08/29/17 12:20 Urine Bilirubin Negative (NEGATIVE) 08/29/17 12:20 Urine Acetone Negative (NEGATIVE) 08/28/17 22:56 Urine Urobilinogen Normal (NORMAL) 08/29/17 12:20 Ur Leukocyte Esterase Negative (NEGATIVE) 08/29/17 12:20 Urine RBC 0-2 /HPF (NONE SEEN) 08/28/17 22:56 Urine WBC 3-5 /HPF (NONE SEEN) 08/28/17 22:56 Ur Squamous Epith Cells Few /HPF (NEGATIVE) 08/28/17 22:56 Urine Bacteria Negative /HPF (NEGATIVE) 08/28/17 22:56 Ur Culture Indicated? No/not indicated 08/28/17 22:56 Digoxin 0.99 ng/mL (0.9-2) 08/30/17 05:17 - Plan (1) Hyperglycemia Status: Acute Plan: insulin drip, monitor otbs (2) Dehydration Status: Acute Plan: iv hydration, continue to monitor (3) Hypotension Status: Acute Qualifiers: Hypotension type: unspecified hypotension type Qualified Code(s): I95.9 - Hypotension, unspecified Plan: iv hydration, continue to monitor
== END 2017-08-31 11:20 | disposition home or self-care (01) | DRG 639 ==
LOC: ICU 21:24
PROVIDERS: ADMIT Internal Medicine; ATTEND Internal Medicine
DX: E11.65 Type 2 diabetes mellitus with hyperglycemia (principal); I95.89 Other hypotension; E86.0 Dehydration; R53.1 Weakness; I50.9 Heart failure, unspecified; I51.7 Cardiomegaly; E78.2 Mixed hyperlipidemia; K21.9 Gastro-esophageal reflux disease without esophagitis
CPT/HCPCS: 36415; 71045; 80053; 80162; 81001; 81002; 81003; 83735; 83880; 85025; 93005; A4222; 1956; J1815

== ENCOUNTER 2019-01-19 08:54 | Observation (INO) ==
[2019-01-19] MEDS ORDERED: NS 1000 ML 1,000 ML ONE (10:56)
[2019-01-19] MEDS: FIORICET TAB PO PRN ×2 (11:00→20:48)
[2019-01-19] MEDS: NS 1000 ML 1,000 ML IV SCH (11:09)
[2019-01-19 11:28] VITALS: BMI 30.7
[2019-01-19 11:31] LABS: BASOPHILS % (AUTO) 0.7 % (0.2-1.0); EOSINOPHILS # (AUTO) 0.1 x10^3/uL (0.0-0.2); HEMATOCRIT 43.2 % (36.0-47.0); LYMPHOCYTES # (AUTO) 1.7 X10^3/uL (1.3-2.9); LYMPHOCYTES % (AUTO) 23.4 % (21.0-51.0); MEAN CORPUSCULAR HEMOGLOBIN 32.4 pg (27.0-34.0); MEAN CORPUSCULAR HGB CONC 34.7 g/dL (33.0-35.0); MEAN CORPUSCULAR VOLUME 93.4 fL (80.0-100.0); MEAN PLATELET VOLUME 7.6 fL (7.4-11.0); MONOCYTES # (AUTO) 0.5 x10^3/uL (0.3-0.8); MONOCYTES % (AUTO) 7.4 % (0.0-13.0); NEUTROPHILS # (AUTO) 4.7 x10^3/uL (2.2-4.8); NEUTROPHILS % (AUTO) 66.5 % (42.0-75.0); PLATELET COUNT 260 X10^3/uL (150.0-450.0); RED BLOOD COUNT 4.63 X10^6/uL (3.5-5.4); RED CELL DISTRIBUTION WIDTH 13.7 % (11.6-16.5); WHITE BLOOD COUNT 7.1 X10^3/uL (3.6-10.0)
[2019-01-19] MEDS: HumuLIN R SUBCUT PRN ×2 (11:41→20:36)
[2019-01-19 11:45] LABS: ALANINE AMINOTRANSFERASE 55 Units/L (12-78); ALBUMIN 3.9 g/dL (3.4-5.0); ALKALINE PHOSPHATASE 66 Units/L (46-116); ASPARTATE AMINO TRANSFERASE 59 Units/L (15-37); BLOOD UREA NITROGEN 38 mg/dL (7-18); CALCIUM 9.6 mg/dL (8.5-10.1); CARBON DIOXIDE 29.1 mmol/L (21-32); CHLORIDE 98 mmol/L (98-107); COR NA(FOR HYPERGLY) 139 mmol/L (136-145); CREATININE 1.19 mg/dL (0.55-1.02); SODIUM 137 mmol/L (136-145); TOTAL PROTEIN 7.8 g/dL (6.4-8.2); eGFR NON BLACK RACES 48 (>60)
[2019-01-19] MEDS ORDERED: MAGNESIUM SULFATE 1 GRAM/100 mL PREMIX 1 GM/100 ML BAG IV PRN (11:52)
[2019-01-19] MEDS ORDERED: POTASSIUM CHL 40 MEQ/NS 0.45% 500 ML IV PRN (11:52)
[2019-01-19] MEDS ORDERED: POTASSIUM CHL 60 MEQ/NS 0.45% 500 ML IV PRN (11:52)
[2019-01-19] MEDS ORDERED: POTASSIUM CHLORIDE LIQ 20 MEQ UDC PO PRN (11:52)
[2019-01-19] MEDS ORDERED: MICRO K EXTEN CAP 10 MEQ PO PRN (11:52)
[2019-01-19] MEDS ORDERED: K-RIDER 10 MEQ/NS 100 ML 10 MEQ/100 ML BAG IV PRN (11:52)
[2019-01-19] MEDS ORDERED: KLOR-CON PO PRN (11:52)
[2019-01-19] MEDS: DILAUDID INJ IVP PRN ×2 (12:50→17:11)
[2019-01-19] MEDS: K-DUR TAB 20 MEQ PO PRN (12:53)
--- NOTE | 2019-01-19 15:30 | CT ---
HEAD CT WITHOUT IV CONTRAST CLINICAL INDICATION: Intractable headache TECHNIQUE: Axial CT images from skull base to vertex without IV contrast.Dose reduction techniques including Automated Exposure Control (AEC) and adjustment of mA and kV were utlized. COMPARISON: None FINDINGS: Diffuse patchy and confluent white matter hypoattenuation with associated volume loss. There is no evidence of acute infarction, intracranial hemorrhage, mass or mass effect, or abnormal extra-axial collection. The density of the larger dural venous sinuses is normal. Age-related, ex-vacuo dilatation of the ventricles and sulci. The skull base and calvarium are normal. The included paranasal sinuses and mastoid air cells are predominantly clear. IMPRESSION: 1. No acute intracranial abnormality. Chronic microangiopathic changes and ex vacuo dilatation of the ventricles and sulci. Reported By:
--- NOTE | 2019-01-19 16:56 | DR.H&P ---
H&P - History & Physical for Day of: H&P Date: 01/19/19 - Chief Complaint Chief Complaint: SEVERE HEADACHE - History of Present Illness History of Present Illness: IS A 68 YEAR OLD PATIENT OF OURS WHO PRESENTED TO THE HOSPITAL A DIRECT ADMISSION DUE TO COMPLAINTS OF A SEVERE HEADACHE THAT STARTED THREE DAYS AGO. PATIENT REPORTS TAKING HER REGULAR HOME MEDICATIONS WITHOUT IMPROVEMENT IN SYMPTOMS. PAIN IS MAINLY ON THE RIGHT SIDE OF HEAD. ASSOCIATED SYMPTOMS INCLUDE NAUSEA AND VOMITING. PATIENT HAS A HISTORY OF UNCONTROLLED DIABETES, CAD, AND A CABG. ON ADMISSION, VITALS WERE 98.0-70-18-96%-140/78. LABS WERE OBTAINED. ABNORMAL LAB VALUES INCLUDE THE FOLLOWING: BUN 38, CREATININE 1.19, POTASSIUM 3.6, GLUCOSE 203, AST 59. WE OBTAINED A BRAIN CT. IT REVEALED: No acute intracranial abnormality. Chronic microangiopathic changes and ex vacuo dilatation of the ventricles and sulci. SHE WAS STARTED ON NORMAL SALINE AT 50ML/HR, DILAUDID 1MG IV Q4H PRN PAIN, FIORICET 1 TAB PO Q4H PRN PAIN, HUMULIN R SLIDING SCALE, AND THE POTASSIUM PROTOCOL. WE WILL RESUME HOME MEDICATIONS. OTHERWISE, WE PLAN TO FOLLOW UP WITH AM LABS AND CONTINUE TO MONITOR. - Past Medical History Past Medical History: Anemia, CHF, Depression, Diabetes, Dyslipidemia, GERD, PUD Additional Medical History: CATARACTS, RETINAL DETACHMENT, HIATAL HERNIA - Past Surgical History Surgical History: Hysterectomy, Other Additional Surgical History: BYPASS X 4 - Family History Family Medical History: Coronary Artery Disease, Sudden Cardiac - Social History Does patient currently use any type of tobacco product: No Have you used tobacco products in the last 12 months: No Type of Tobacco Use: None Alcohol Use: None Drug Use: None Prescription drug monitoring program results: PDMP was not reviewed - Medications Home Medications: No Known Allergies Adverse Reaction (Verified 11/17/16 18:52) CONTINUE taking the following medications biotin 5,000 mcg PO DAILY 01/19/19 [History] donepezil 5 mg PO DAILY 01/19/19 [History] metoprolol succinate 25 mg PO DAILY 01/19/19 [History] - Review of Systems Constitutional: No Symptoms Reported Eyes: No Symptoms Reported ENT: No Symptoms Reported Respiratory: No Symptoms Reported Cardiovascular: No Symptoms Reported Gastrointestinal: No Symptoms Reported Genitourinary: No Symptoms Reported Musculoskeletal: No Symptoms Reported Skin: No Symptoms Reported Neurological: Weakness, Other (HEADACHE ) - Physical Exam Vital Signs: Temperature 98.1 F Pulse Rate [Left Brachial] 60 Pulse Rate [Right Brachial] 70 Respiratory Rate 18 Blood Pressure [Left Arm] 120/66 Blood Pressure [Right Arm] 140/78 Blood Pressure 115/60 O2 Sat by Pulse Oximetry 93 Oriented: Normal Eyes: Normal Ear: Normal Nose: Normal Throat: Normal Respiratory: Clear Throughout Cardiovascular: Normal : Normal Auscultation: Bowel Sounds: Normal Palpation: Normal Tenderness: Normal Skin: Normal Musculoskeletal: Normal Psychiatric: Normal Mood Description: Calm Affect: Normal Speech Pattern: Clear - Assessment/Plan (1) Intractable headache Qualifiers: Headache type: unspecified Headache chronicity pattern: acute headache Qualified Code(s): R51 - Headache Status: Acute Plan: ADMIT, IV DILAUDID, FIORICET, BRAIN CT, CONTINUE TO MONITOR (2) Nausea and vomiting Qualifiers: Vomiting type: unspecified Status: Acute Plan: IV ZOFRAN, CONTINUE TO MONITOR - Allergies Allergies/Adverse Reactions: Allergies Allergy/AdvReac Type Severity Reaction Status Date / Time No Known Allergies AdvReac Verified 11/17/16 18:52
[2019-01-19] MEDS ORDERED: ZOFRAN INJ 4 MG VIAL IVP PRN (17:00)
[2019-01-19] MEDS ORDERED: SNACK - Diabetic Appropriate PO SCH (20:00)
[2019-01-19] MEDS: KLONOPIN TAB 1 MG PO SCH ×2 (20:34→20:36)
[2019-01-19] MEDS: CALAN SR 180 MG PO SCH (20:35)
[2019-01-19] MEDS ORDERED: DESYREL PO SCH (21:00)
[2019-01-20] MEDS: KLONOPIN TAB 1 MG PO SCH (00:01)
[2019-01-20] MEDS: DILAUDID INJ IVP PRN ×2 (00:02→09:06)
[2019-01-20] MEDS: NS 1000 ML 1,000 ML IV SCH ×2 (05:19→12:00)
[2019-01-20] MEDS: HumuLIN R SUBCUT PRN ×2 (05:47→11:58)
[2019-01-20 06:02] LABS: BASOPHILS % (AUTO) 0.5 % (0.2-1.0); EOSINOPHILS # (AUTO) 0.2 x10^3/uL (0.0-0.2); EOSINOPHILS % (AUTO) 2.9 % (0.9-2.9); HEMATOCRIT 37.9 % (36.0-47.0); HEMOGLOBIN 13.2 g/dL (12.0-16.0); LYMPHOCYTES # (AUTO) 1.8 X10^3/uL (1.3-2.9); LYMPHOCYTES % (AUTO) 31.4 % (21.0-51.0); MEAN CORPUSCULAR HEMOGLOBIN 32.6 pg (27.0-34.0); MEAN CORPUSCULAR HGB CONC 34.9 g/dL (33.0-35.0); MEAN CORPUSCULAR VOLUME 93.6 fL (80.0-100.0); MEAN PLATELET VOLUME 7.3 fL (7.4-11.0); MONOCYTES # (AUTO) 0.5 x10^3/uL (0.3-0.8); MONOCYTES % (AUTO) 9.1 % (0.0-13.0); NEUTROPHILS # (AUTO) 3.1 x10^3/uL (2.2-4.8); NEUTROPHILS % (AUTO) 56.1 % (42.0-75.0); PLATELET COUNT 230 X10^3/uL (150.0-450.0); RED BLOOD COUNT 4.05 X10^6/uL (3.5-5.4); RED CELL DISTRIBUTION WIDTH 13.9 % (11.6-16.5); WHITE BLOOD COUNT 5.6 X10^3/uL (3.6-10.0)
[2019-01-20 06:16] LABS: ALANINE AMINOTRANSFERASE 62 Units/L (12-78); ALBUMIN 3.2 g/dL (3.4-5.0); ALKALINE PHOSPHATASE 58 Units/L (46-116); ASPARTATE AMINO TRANSFERASE 63 Units/L (15-37); BLOOD UREA NITROGEN 26 mg/dL (7-18); CALCIUM 8.6 mg/dL (8.5-10.1); CHLORIDE 101 mmol/L (98-107); COR CA(FOR HYPOALB) 9.2 mg/dL (8.5-10.1); COR NA(FOR HYPERGLY) 140 mmol/L (136-145); CREATININE 0.91 mg/dL (0.55-1.02); SODIUM 137 mmol/L (136-145); TOTAL PROTEIN 6.5 g/dL (6.4-8.2); eGFR NON BLACK RACES > 60 (>60)
[2019-01-20] MEDS: CALAN SR 180 MG PO SCH ×2 (09:05→11:52)
[2019-01-20] MEDS: K-DUR TAB 20 MEQ PO PRN (09:05)
--- NOTE | 2019-01-20 11:46 | CT ---
CT SINUSES WITHOUT IV CONTRAST HISTORY: Severe headache and congestion Comparison: None Technique: Multiple axial images of the paranasal sinuses were obtained without the administration of IV contrast. Coronal and sagittal reformats were performed and reviewed. Dose reduction techniques including Automated Exposure Control (AEC) and adjustment of mA and kV were utlized. Findings: The maxillary sinuses, anterior and posterior ethmoid air cells, sphenoid sinuses, and frontal sinuses demonstrate no evidence for mucosal inflammatory disease. The nasal septum is midline. The ostiomeatal unit on the right and left are widely patent without inflammatory change. The left and right frontal recesses are unremarkable in their appearance. Visualized portions of the posterior fossa and intracranial structures are unremarkable as well. IMPRESSION: 1. No evidence of acute or chronic sinusitis. Reported By:
[2019-01-20 12:01] VITALS: BP 120/58
== END 2019-01-20 12:37 | disposition home or self-care (01) ==
LOC: MED/SURG
PROVIDERS: ADMIT Internal Medicine; ATTEND Internal Medicine
CPT/HCPCS: 36415; 70450; 70486; 80053; 83735; 85025; 94760; 96367; 96372; 96374; A4216; A4222; G0378; J1170; J1815; J7030